=== PATIENT | male | born 1975 | race Asian ===

== ENCOUNTER 2020-04-02 03:28 | Outpatient (REF) | payer OTHER, SELFPAY ==
[2020-04-02 05:34] LABS: SARS COV2 PCR INHOUSE NEGATIVE (Negative)
== END 2020-04-02 03:29 | disposition home or self-care (01) ==
LOC: HO.LAB 03:28
PROVIDERS: Visit Provider Internal Medicine
DX: Z20.828 Contact with and (suspected) exposure to other viral communicable diseases (principal)
CPT/HCPCS: 87635

== ENCOUNTER 2020-04-06 07:04 | Outpatient (REF) | payer OTHER, SELFPAY ==
[2020-04-06 07:23] LABS: COVID-19 Test Negative (Negative)
== END 2020-04-06 07:05 | disposition home or self-care (01) ==
LOC: HO.LAB 07:04
PROVIDERS: Visit Provider Internal Medicine
DX: Z20.828 Contact with and (suspected) exposure to other viral communicable diseases (principal)
CPT/HCPCS: 87635

== ENCOUNTER 2021-01-15 01:05 | Emergency (ER) | payer OTHER, SELFPAY ==
[2021-01-15 01:10] VITALS: BP 154/91; PULSE 83; RESP 16; TEMP 37.1; O2SAT 97; BMI 33.7
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
[2021-01-15] MEDS: Ibuprofen 800 MG TABLET PO (01:33)
--- NOTE | 2021-01-15 01:35 | PC.NURSE ---
PT LAC TO LEFT EAR CLEANED AND DERMABONDED BY DR. SPRINGER.
== END 2021-01-15 01:41 | disposition home or self-care (01) ==
PROVIDERS: Emergency Provider Emergency Medicine
DX: S01.312A Laceration without foreign body of left ear, initial encounter (principal); S60.221A Contusion of right hand, initial encounter; S50.11XA Contusion of right forearm, initial encounter; Y04.2XXA Assault by strike against or bumped into by another person, initial encounter; Y93.9 Activity, unspecified; Y92.230 Patient room in hospital as the place of occurrence of the external cause; Y99.0 Civilian activity done for income or pay
CPT/HCPCS: 99283; 99284

== ENCOUNTER 2021-06-29 00:04 | Outpatient (REF) | payer OTHER, SELFPAY ==
[2021-06-29 01:04] LABS: Influenza A PCR NEGATIVE (Negative); Influenza B PCR NEGATIVE (Negative); Resp Syncy Virus RNA Qual PCR NEGATIVE (Negative); SARS COV2 PCR INHOUSE NEGATIVE (Negative)
== END 2021-06-29 00:05 | disposition home or self-care (01) ==
LOC: HO.LAB 00:04
PROVIDERS: Visit Provider Internal Medicine
DX: Z20.822 Contact with and (suspected) exposure to COVID-19 (principal)
CPT/HCPCS: 0241U

== ENCOUNTER 2022-12-23 07:10 | Emergency (ER) | payer OTHER, SELFPAY ==
--- NOTE | ~2022-12-23 | CT_ITS ---
EXAMINATION: CT ABDOMEN AND PELVIS WITHOUT CONTRAST CLINICAL INFORMATION: Right lower abdominal/right flank pain. COMPARISON: None available. TECHNIQUE: Multidetector volumetric imaging was performed from the superior aspect of the liver through the pubic symphysis. Sagittal and coronal reformatted images were obtained on the technologist's workstation. This CT examination was performed using dose optimization techniques as appropriate, variously including the following: *Automated exposure control *Adjustment of mA and/or kV according to patient size (this includes techniques or standardized protocols for targeted exams where dose is matched to indication/reason for exam; i.e. extremities or head) *Use of iterative reconstruction technique DLP: 705 mGy-cm FINDINGS: LUNG BASES: Small pericardial effusion. LIVER, GALLBLADDER, AND BILIARY TREE: The liver is decreased in attenuation. 2.3 cm right hepatic cyst. 1.6 cm inferior hepatic steatosis. No biliary ductal dilatation is present. The gallbladder is surgically absent. PANCREAS: Unremarkable. SPLEEN: Unremarkable. ADRENAL GLANDS: Unremarkable. KIDNEYS AND URETERS: The kidneys are symmetric in size. No renal calculus. No hydronephrosis. No perinephric stranding. BLADDER: Decompressed. GASTROINTESTINAL TRACT: Small and large bowel loops are of normal caliber. No small bowel obstruction. Appendix is dilated without surrounding inflammatory changes. ABDOMINAL WALL: No significant hernia is appreciated. LYMPH NODES: No bulky abdominal or pelvic lymphadenopathy. VASCULAR: Normal caliber abdominal aorta. PELVIC VISCERA: The prostate gland and seminal vesicles are unremarkable. OSSEOUS STRUCTURES: No destructive bone lesions. CT/CT abdomen pelvis wo IV con IMPRESSION: Dilated appendix measuring up to 1.2 cm without surrounding inflammatory changes. Advise clinical correlation. Hepatic steatosis.
[2022-12-23 07:17] VITALS: BP 138/80; PULSE 79; RESP 16; TEMP 37.2; O2SAT 96; BMI 34.5
--- NOTE | 2022-12-23 07:27 | ED_ITS ---
HPI - Abdominal Pain General Chief Complaint: Abdominal Pain Stated Complaint: r lower abd pain Time Seen by Provider: 12/23/22 07:17 Source: patient Mode of arrival: ambulatory Limitations: no limitations History of Present Illness HPI narrative: 47 yo male presenting to the ER for evaluation of intermittent right lower abdominal pains for the last 2 days. Pain is located in the right lower portion of the abdomen and right flank. No associated nausea, vomiting, diarrhea or urinary symptoms. MD elicited complaint: abdominal pain and flank pain Pertinent past history: none Onset (ago): day(s) (2) Pain Consistency: intermittent Location: RLQ and R flank Severity: moderate Quality: aching Radiation: none Migration to: no migration Exacerbating factors: other (palpation) Relieving factors: nothing Associated symptoms: denies other symptoms Related Data Previous Rx's Medication Instructions Recorded lisinopril 40 mg tablet 40 mg PO DAILY #90 tabs 07/05/22 Allergies Allergy/AdvReac Type Severity Reaction Status Date / Time No Known Allergies Allergy Verified 01/15/21 01:16 Review of Systems Review of Systems Yes all other systems are reviewed and are negative [facility] Past Medical History Medical History HTN (hypertension) Social History Social History Advance Directives: No Advance Directives Information Provided: No Physical Exam ED Vital Signs: Vital Signs - 24 hr 12/23/22 07:17 Temperature 98.9 F Pulse Rate 79 Respiratory Rate 16 Blood Pressure 138/80 Pulse Oximetry 96 Oxygen Delivery Method Room Air BMI result Body Mass Index 34.5 Appearance: Alert. Oriented X3. No acute distress. Head: normocephalic, atraumatic. Eyes: Pupils equal, round and reactive to light. ENT: Pharynx normal. No tonsillar swelling or exudate. Neck: Normal inspection. Neck supple. CVS: Normal heart rate and rhythm. Pulses normal. Respiratory: No respiratory distress. Breath sounds normal. Abdomen: Soft, mild tenderness of the right flank, minimal tenderness to RLQ without rebound or guarding. +BS x4 Skin: Skin warm and dry. Normal skin color. Normal skin turgor. No rashes. Extremities: No lower extremity edema. No joint swelling. Neuro/psych: Oriented X 3. No motor deficit. No sensory deficit. CN II-XII intact. Normal speech and cognition. Medical Decision Making Medical Decision Making MDM Narrative: 47 yo male presenting with right lower abdominal pain for the last 2 days. no leukocytosis, N/V/D doubt acute appendicitis CT scan showed appendix diitation but no surrounding inflammatory changes. Differential Diagnosis Differential Diagnoses: The differential diagnosis associated with the presentation includes acute appendicitis, appendiceal carcinoma, kidney stone, obstructive uropathy, colitis, muscular pain Admission/Observation Consideration of admission/observation: Escalation of care including admission/observation considered RLQ pain, considered admission Lab Data [facility] Lab Attestation statement: I reviewed the patient's lab results. no leukocytosis 12/23/22 07:42 12/23/22 07:42 Labs: Lab Results 12/23/22 12/23/22 12/23/22 Range/Units 07:42 07:42 08:04 WBC 6.6 (4.8-10.8) X10*3/uL RBC 4.50 L (4.60-5.80) X10*6/uL Hgb 14.2 (14.0-18.0) g/dl Hct 41.3 L (42.0-52.0) % MCV 91.8 (80.0-98.0) fL MCH 31.6 (27.0-33.0) pg MCHC 34.4 (31.0-36.0) g/dl RDW 12.7 (11.0-16.0) % Plt Count 233 (160-400) X10*3/uL MPV 9.4 (9.4-12.4) fL Immature Gran % (Auto) 0.3 (0.0-0.4) % Neut % (Auto) 59.2 (45-73) % Lymph % (Auto) 27.6 (20-40) % [place] % (Auto) 7.6 (2-11) % Eos % (Auto) 4.4 H (0-4) % Baso % (Auto) 0.9 (0-2) % Lymph # (Auto) 1.8 (1.2-4.9) X10*3/uL [place] # (Auto) 0.5 (0.1-1.2) X10*3/uL Eos # (Auto) 0.3 (0.0-0.4) X10*3/uL Baso # (Auto) 0.1 (0.0-0.2) X10*3/uL Abs Immat Gran (auto) 0.02 (0.00-0.03) X10*3/uL Absolute Neuts (auto) 3.9 (2.0-8.3) x10*3/uL Absolute Nucleated RBC 0.000 (0.0-0.012) X10*3/uL Nucleated RBC % (auto) 0.0 (0.0-0.2) /100WBC Sodium 140 (135-145) mmol/L Potassium 3.9 (3.3-5.1) mmol/L Chloride 106 (96-108) mmol/L Carbon Dioxide 26 (22-29) mmol/L Anion Gap 12 (12-20) BUN 11 (9-16) mg/dL Creatinine 0.91 (0.5-1.4) mg/dL Estim Creat Clear Calc 107.0 Estimated GFR > 60 Random Glucose 142 H (60-115) mg/dL Calcium 9.4 (8.4-10.2) mg/dL Magnesium 2.0 (1.6-2.6) mg/dL Total Bilirubin 0.9 (0.0-1.0) mg/dL Direct Bilirubin 0.2 (0.0-0.5) mg/dL AST 20 (5-37) U/L ALT 47 H (0-40) U/L Alkaline Phosphatase 89 (39-117) U/L Total Protein 6.8 (6.5-8.0) g/dL Albumin 3.9 (3.5-5.0) g/dL Urine Color Yellow Urine Appearance Clear Urine pH 6.0 (5.0-9.0) Ur Specific [place] 1.025 (1.005-1.025) Urine Protein Negative (Neg-Trace) mg/dL Urine Glucose (UA) Negative (Negative) mg/dL Urine Ketones Negative (Negative) mg/dL Urine Blood Negative (Negative) Urine Nitrite Negative (Negative) Ur Leukocyte Esterase Negative (Negative) Independent Interpretation I performed an independent interpretation of an: CT Scan Interpretation: no mesenteric stranding or inflammatory changes in the RLQ, agree w/ radiology read Radiology Impression Discussion of test interpretation with radiology: I have reviewed the radiologist's reading. Radiologist Impression: ?CT/CT abdomen pelvis wo IV con IMPRESSION: Dilated appendix measuring up to 1.2 cm without surrounding inflammatory changes. Advise clinical correlation. ? Hepatic steatosis. ? External Record Review External record reviewed: Outpatient record and Prior outpatient labs Prescription Management I considered prescription management with: Pain Medication and Antibiotic Critical Care Time Critical Care Time Critical Care Time: No Discharge Plan Discharge Clinical Impression: Abdominal pain Patient Disposition: Home, Self-Care Instructions: Abdominal Pain (ED) Additional Instructions: your lab workup today was unremarkable if you have any abnormal CT scan findings, we will call you Prescriptions: No Action lisinopril 40 mg tablet 40 mg PO DAILY Qty: 90 3RF Referrals: Matthew Encarnacion MD [Physician] - (Enlarged appendix w/o surrounding inflammatory changes but has elevated eosinophils and RLQ pain, no fevers or vomiting) Interventions: ED Discharge Assessment Last Done: 12/23/22 08:16 Discharge Date/Time: 12/23/22 08:16
[2022-12-23 07:45] LABS: MANUAL DIFF FLAG NO
[2022-12-23 07:50] LABS: Basophils Absolute Auto 0.1 X10*3/uL (0.0-0.2); Basophils Percent Auto 0.9 % (0-2); Eosinophils Absolute Auto 0.3 X10*3/uL (0.0-0.4); Eosinophils Percent Auto 4.4 % (0-4); Hematocrit 41.3 % (42.0-52.0); Hemoglobin 14.2 g/dl (14.0-18.0); Imm Gran Abs Auto 0.02 X10*3/uL (0.00-0.03); Imm Gran Pct Auto 0.3 % (0.0-0.4); Lymphocytes Absolute Auto 1.8 X10*3/uL (1.2-4.9); Lymphocytes Percent Auto 27.6 % (20-40); Mean Corpuscular HGB Conc 34.4 g/dl (31.0-36.0); Mean Corpuscular Hemoglobin 31.6 pg (27.0-33.0); Mean Corpuscular Volume 91.8 fL (80.0-98.0); Mean Platelet Volume 9.4 fL (9.4-12.4); Monocytes Absolute Auto 0.5 X10*3/uL (0.1-1.2); Monocytes Percent Auto 7.6 % (2-11); Neutrophils Absolute Auto 3.9 x10*3/uL (2.0-8.3); Neutrophils Percent Auto 59.2 % (45-73); Platelet Count 233 X10*3/uL (160-400); Red Cell Distribution Width 12.7 % (11.0-16.0); White Blood Count 6.6 X10*3/uL (4.8-10.8)
[2022-12-23 08:05] LABS: Alanine Aminotransferase 47 U/L (0-40); Albumin Level 3.9 g/dL (3.5-5.0); Alkaline Phosphatase 89 U/L (39-117); Anion Gap 12 (12-20); Aspartate Amino Transferase 20 U/L (5-37); Bilirubin Direct 0.2 mg/dL (0.0-0.5); Bilirubin Total 0.9 mg/dL (0.0-1.0); Blood Urea Nitrogen 11 mg/dL (9-16); Calcium 9.4 mg/dL (8.4-10.2); Carbon Dioxide 26 mmol/L (22-29); Chloride 106 mmol/L (96-108); Estimated Glomerular Filt Rate > 60; Glucose Random 142 mg/dL (60-115); Potassium 3.9 mmol/L (3.3-5.1); Sodium 140 mmol/L (135-145); Total Protein 6.8 g/dL (6.5-8.0)
[2022-12-23 08:14] LABS: Appearance Urine Clear; Color Urine Yellow; Glucose Urine UA Negative (Negative); Leukocyte Esterase Urine Negative (Negative); Nitrite Urine Negative (Negative); Specific Gravity - Urine 1.025 (1.005-1.025); Urine Blood Negative (Negative); Urine Ketones Negative (Negative); Urine Protein Negative (Neg-Trace)
== END 2022-12-23 08:16 | disposition home or self-care (01) ==
PROVIDERS: Physician Assistant; Emergency Provider Emergency Medicine
DX: R10.31 Right lower quadrant pain (principal); R00.2 Palpitations; Z79.899 Other long term (current) drug therapy
CPT/HCPCS: 36415; 74176; 80048; 80076; 81003; 83735; 85025; 99282; 99284

== ENCOUNTER 2023-02-22 13:40 | Outpatient (AMB) | payer OTHER, SELFPAY ==
--- NOTE | 2023-02-22 13:49 | MHC.OFFVIS ---
Intake Vital Signs 02/22/23 13:50 Height 5 ft 6 in Weight 212 lb 15.465 oz BMI 34.4 BP 150/93 H Blood Pressure Location Rt brachial Position Sitting Pulse 69 Intake Visit Reasons: GERD and Difficulty Swallowing Intake Note: New consult for GERD and Dysphagia. Patient cc: abdominal discomfort, burning sensation with liquid and dysphagia with solid food. Patient have hx of H pylori infections in the past. Pediatric Psychiatrist Required: No Accompanied by: Self / Same As Patient Allergies No Known Allergies Allergy (Verified 02/22/23 13:48) HPI HPI Comments History of Present Illness Details A 47 y/o male with dysphagia to solids--odynophagia with liquid- he has had EGD x 3 - last 6 years ago -he reports he had been treated for H pylori several times while in [place] as well as here in the [place] He says he was in the ED for RLQ pain- seemed to have now subsided -he had a CT, a showed dilated appendix His not had any fever chills-no further abdominal pain. he has never had a colonoscopy No bowel issues Typically a good appetite No nausea, vomiting, hematemesis, hematochezia fever chills PFSH Medical History HTN (hypertension) Family History Mother Uterus cancer Social History (Updated 02/22/23 @ 14:03 by Drea Leal PA-C) Household Members: Family Household Members Other:: 4 kids Alcohol intake: never Patient Tobacco Use Status: Never used Tobacco Current occupational status: employed Current occupation: RN- ED psych Review of Systems Const All systems reviewed & are unremarkable except as noted in HPI and below Card Denies chest pain and Denies dyspnea Resp Denies dyspnea GI Denies abdominal pain, Denies hematochezia, Denies change in bowel habits, Reports dyspepsia, Reports heartburn, Denies nausea and Denies vomiting Physical Exam Vital Signs: Last Vital Signs Pulse 69 02/22/23 13:50 BP 150/93 H 02/22/23 13:50 BMI result Body Mass Index 34.4 Const General: cooperative, healthy appearing, comfortable and no acute distress Orientation/consciousness: patient oriented x3 Limitations: no limitations Eyes Sclerae: sclerae normal Resp Effort & Inspection: normal respiratory effort and able to speak in complete sentences Auscultation: clear to auscultation bilaterally, no rales, no rhonchi and no wheezes Cardio Rate: regular rate Rhythm: regular rhythm Heart sounds: S1 normal heart sound present and S2 normal heart sound present GI Palpation (GI): Soft to palpation, nontender and no guarding Auscultation: normal bowel sounds Skin General skin exam: no rashes or lesions noted Neuro General: patient oriented x3 Extrem General: Yes full ROM Psych Appearance: grossly normal and well kempt Speech and movement: Normal speech and movement present and Clear speech present Affect: normal affect Attitude: cooperative Thought process: Normal thought process present Thought content: Normal thought content present Insight: Good insight present (Psych) Judgement: Good judgement present (Psych) Results Reviewed Results Reviewed: 02/24/23 15:48 H Pylori Breath Test Routine Laboratory Last Values H. pylori Breath Test Negative (Negative) 02/22/23 14:28 12/23/22- CT/CT abdomen pelvis wo IV con IMPRESSION: Dilated appendix measuring up to 1.2 cm without surrounding inflammatory changes. Advise clinical correlation. Hepatic steatosis. Assessment & Plan Assessment & Plan (1) Dysphagia: Code(s): R13.10 - Dysphagia, unspecified (2) Appendix disease: Comment: GASTROINTESTINAL TRACT: Small and large bowel loops are of normal caliber. No small bowel obstruction. Appendix is dilated without surrounding inflammatory changes. Code(s): K38.9 - Disease of appendix, unspecified Plan H pylori UBT-if positive will treat EGD, index screening colonoscopy- However need for surgical consult regard to dilated appendix though he is currently asymptomatic needs further eval Will discuss further with MD Orders: Orders H Pylori Breath Test 02/24/23 A04.8 - Other specified bacterial intestinal infections Medications: New omeprazole 20 mg PO DAILY 30 caps 5RF Patient Instructions: Very pleasant 47-year-old male referred with dysphagia-right lower quadrant pain, evaluated by ED We have placed referral to surgery for further evaluation -he will be due for colonoscopy possibly EGD as well however plan of care dependent on above He agrees with the plan, he will call for H pylori results= as well call with any concerns Appreciate the opportunity assist in the care this pleasant Gent Coding Level of Care Code New Pt Level 3 (71385) Diagnoses Dysphagia R13.10 Appendix disease K38.9 Time Spent (min) 30
[2023-02-22 13:50] VITALS: BP 150/93; PULSE 69; BMI 34.4
[2023-02-26 10:32] LABS: H Pylori Breath Test Negative (Negative)
== END 2023-02-22 14:37 | disposition home or self-care (01) ==
PROVIDERS: PCP Physician Assistant; Visit Provider Physician Assistant
DX: R13.10 Dysphagia, unspecified (principal); K38.9 Disease of appendix, unspecified
CPT/HCPCS: 99203

== ENCOUNTER → 2023-02-22 13:40 | Outpatient (BNVA) | payer OTHER, SELFPAY | PROVIDERS: PCP Physician Assistant; Visit Provider Physician Assistant | DX: R13.10 Dysphagia, unspecified (principal); K38.9 Disease of appendix, unspecified; Z11.0 Encounter for screening for intestinal infectious diseases | CPT/HCPCS: 83013 ==

== ENCOUNTER 2023-03-08 08:45 | Outpatient (REF) | payer OTHER, SELFPAY ==
[2023-03-08 10:53] LABS: Blood Urea Nitrogen 12 mg/dL (9-16); Estimated Glomerular Filt Rate > 60
== END 2023-03-08 08:46 | disposition home or self-care (01) ==
LOC: HO.LAB 08:45
PROVIDERS: PCP Physician Assistant; Referring Provider Physician Assistant; Visit Provider Surgery
DX: R93.5 Abnormal findings on diagnostic imaging of other abdominal regions, including retroperitoneum (principal)
CPT/HCPCS: 36415; 82565; 84520

== ENCOUNTER 2023-03-08 08:45 | Outpatient (AMB) | payer OTHER, SELFPAY ==
--- NOTE | 2023-03-08 08:47 | MHC.OFFVIS ---
Intake Vital Signs 03/08/23 08:52 Height 5 ft 6 in Weight 212 lb BMI 34.2 BP 133/85 Blood Pressure Location Rt brachial Position Sitting Pulse 72 Intake Visit Reasons: Disease of appendix, unspecified Intake Note: This patient was referred by Drea Leal PA-C for an assessment for right lower quadrant pain. Patient c/o; denies right lower quadrant pain at this time, patient reports RLQ pain was only one episode, denies problems with bowel movements, reports dysphagia to solids--odynophagia with liquid. [employer] Dispatcher Required: No Accompanied by: Self / Same As Patient Allergies No Known Allergies Allergy (Verified 03/08/23 08:58) Medication List - Last Reconciled 03/08/23 by Matthew Encarnacion MD amlodipine 5 mg PO DAILY lisinopril 40 mg PO DAILY omeprazole 20 mg PO DAILY HPI Disease of appendix, unspecified HPI Details 47-year-old male referred for an abnormal CT scan in December. He went to the ER December, because of right lower quadrant pain. He describes this as mild at that time. He had a CAT scan showing a dilated appendix without any inflammatory changes. He says that he had pain pain is resolved in 2-3 days He denies any abdominal complaints at this time. He has had no abdominal pain he has had good oral intake. He denies any problems with bowel movements. He denies any weight loss. [facility] Medical History (Updated 03/08/23 @ 09:21 by Matthew Encarnacion MD) Abnormal CT of the abdomen HTN (hypertension) Surgical History History of cholecystectomy (~2007) Family History Mother Uterus cancer Social History Household Members: Family Household Members Other:: 4 kids Alcohol intake: never Patient Tobacco Use Status: Never used Tobacco Current occupational status: employed Current occupation: RN- ED psych Review of Systems Const Denies chills and Denies fever(s) ENT Reports dysphagia Card Denies chest pain, Denies dyspnea and Denies dyspnea on exertion Resp Denies cough, Denies dyspnea and Denies dyspnea on exertion GI Denies hematochezia, Denies change in bowel habits and Reports dysphagia Denies hematuria and Denies difficulty urinating Musc Denies back pain and Denies limited range of motion Neuro Denies focal weakness and Denies convulsions Psych Denies depression and Denies mood swings Physical Exam Vital Signs: Last Vital Signs Pulse 72 03/08/23 08:52 BP 133/85 03/08/23 08:52 BMI result Body Mass Index 34.2 Const General: comfortable and no acute distress Orientation/consciousness: patient oriented x3 Neck Neck: Yes no lymphadenopathy Resp Auscultation: clear to auscultation bilaterally Cardio Rhythm: regular rhythm GI Palpation (GI): Soft to palpation, nontender and no guarding Neuro General: patient oriented x3 Assessment & Plan Assessment & Plan (1) Abnormal CT of the abdomen: Code(s): R93.5 - Abnormal findings on diagnostic imaging of other abdominal regions, including retroperitoneum Plan: He had a CAT scan done a visit to the ER last December, showing dated appendix up to 1.2 cm. He currently denies any complaints. He denies any abdominal pain or any problems with bowel movements. I explained to him that this may be a normal variant. I plan to repeat the CT scan to see if there are any changes regards to his appendix. He also had mentioned that he had some sensation of his food getting stuck in his chest whenever he eats. He seen the professor of legal studies. We will follow up with them as he is supposed to be scheduled for endoscopy as well as colonoscopy. I will see him again after his CAT scan. Coding Level of Care Code New Pt Level 3 (48617) Diagnoses Abnormal CT of the abdomen R93.5
[2023-03-08 08:52] VITALS: BP 133/85; PULSE 72; BMI 34.2
== END 2023-03-08 09:24 | disposition home or self-care (01) ==
PROVIDERS: PCP Physician Assistant; Referring Provider Physician Assistant; Visit Provider Surgery
DX: R93.5 Abnormal findings on diagnostic imaging of other abdominal regions, including retroperitoneum (principal)
CPT/HCPCS: 99203

== ENCOUNTER 2023-04-19 07:24 | Outpatient (REF) | payer OTHER, SELFPAY ==
--- NOTE | ~2023-04-19 | CT_ITS ---
EXAMINATION: CT ABDOMEN AND PELVIS WITH CONTRAST CLINICAL INFORMATION: Abnormal appendix December 2022 COMPARISON: CT abdomen pelvis 12/23/2022 TECHNIQUE: Multidetector volumetric images were obtained from the superior aspect of the liver through the pubic symphysis following administration 85 mL of Omnipaque 350 intravenous contrast. Sagittal and coronal reformatted images were obtained on the technologist's workstation. This CT examination was performed using dose optimization techniques as appropriate, variously including the following: *Automated exposure control *Adjustment of mA and/or kV according to patient size (this includes techniques or standardized protocols for targeted exams where dose is matched to indication/reason for exam; i.e. extremities or head) *Use of iterative reconstruction technique DLP: 548 mGy-cm FINDINGS: Visualized lung bases are well aerated. The liver is normal in size. Two Hepatic cysts are relatively stable in size. The gallbladder surgically absent. The pancreas, spleen and adrenal glands are unremarkable. Symmetrically enhancing kidneys. There is no hydronephrosis of either kidney. Subcentimeter hypodense focus within the midpole the left kidney is too small to accurately characterize but statistically a cyst. Debris-filled stomach. Normal caliber loops of small and large bowel. Mild colonic stool burden. The appendix is normal in appearance measuring 6 mm in maximum dimension. There are no adjacent inflammatory changes. Irregularly shaped lipoma within the ascending colon measuring approximately 5.5 cm in maximum dimension. Normal caliber abdominal aorta. No retroperitoneal lymphadenopathy. Tiny fat-containing umbilical hernia is stable. The bladder is normal in appearance. The prostate gland is normal in size. No gross free pelvic fluid. Mild diffuse degenerative changes of the spine. CT/CT abdomen pelvis w IV con IMPRESSION: 1. The appendix is normal in appearance. 2. Irregularly shaped lipoma within the ascending colon measuring approximately 5.5 cm in maximum dimension. Fleischner guidelines were followed.
[2023-04-19] MEDS: iohexoL 350 MG/ML 100 ML INFUS..BTL IV (08:46)
== END 2023-04-19 07:25 | disposition home or self-care (01) ==
LOC: HO.CT 07:24
PROVIDERS: PCP Physician Assistant; Visit Provider Surgery
DX: R93.5 Abnormal findings on diagnostic imaging of other abdominal regions, including retroperitoneum (principal)
CPT/HCPCS: 74177; Q9967

== ENCOUNTER 2023-04-27 12:49 | Day surgery (SDC) | payer OTHER, SELFPAY ==
[2023-04-25 12:46] VITALS: BMI 34.2
--- NOTE | 2023-04-26 10:11 | P.CONAN_ITS ---
Documented by User: Olive Gallo NP 04/26/23 10:12 HPI - Anesthesia Eval Consult details Narrative: 47yo M for Upper Endoscopy and Colonoscopy [facility] Active Problems Active Problems: All Active Problems (Updated 03/08/23 @ 09:21 by Matthew Encarnacion MD) Abnormal CT of the abdomen (Acute) Appendix disease (Acute) Dysphagia (Acute) Past Medical History Medical History Abnormal CT of the abdomen HTN (hypertension) Family History Family History Mother Uterus cancer Surgical History Surgical History History of cholecystectomy (~2007) Social History Social History Household Members: Family Household Members Other:: 4 kids Alcohol intake: never Patient Tobacco Use Status: Never used Tobacco Use of substances other than those prescribed or required for medical reasons: No Are you DNR?: No Advance Directives: No Advance Directives Information Provided: Yes Current occupational status: employed 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 Allergies Allergy/AdvReac Type Severity Reaction Status Date / Time No Known Allergies Allergy Verified 03/08/23 08:58 Exam Exam Date and Time: April 26, 2023 1011 Height,Weight and Vital Signs: Height 5 ft 6 in Weight 96.162 kg Pertinent Lab Results Pertinent Lab Results: Laboratory Tests 12/23/22 03/08/23 07:42 09:57 WBC 6.6 Hgb 14.2 Hct 41.3 L Plt Count 233 Sodium 140 Potassium 3.9 Chloride 106 Carbon Dioxide 26 BUN 12 Creatinine 1.00 Assessment and Plan Assessment Anesthesia Assessment: Chart Reviewed Documented by User: Angela Richmond MD 04/27/23 13:31 PMF Past Medical History Medical History Abnormal CT of the abdomen HTN (hypertension) Family History Family History Mother Uterus cancer Family history of problems with anesthesia: No Surgical History Surgical History History of cholecystectomy (~2007) History of Problems with Anesthesia: No Social History Social History Household Members: Family Household Members Other:: 4 kids Alcohol intake: never Patient Tobacco Use Status: Never used Tobacco Use of substances other than those prescribed or required for medical reasons: No Are you DNR?: No Advance Directives: No Advance Directives Information Provided: Yes Current occupational status: employed 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 Allergies Allergy/AdvReac Type Severity Reaction Status Date / Time No Known Allergies Allergy Verified 03/08/23 08:58 Exam Airway Mallampati Class: III TM Dist: >3cm Neck ROM: Limited Heart: rrr Lungs: cta Assessment and Plan Assessment Anesthesia Assessment: Anesthesia Plan Discussed Final Anesthetic Review Family History of Problems with Anesthesia: No History of Problems with Anesthesia: No NPO: Yes ASA Class: II and III Final Preanesthetic Review: No Changes in Pt Med Stat, Meds/Allgs Chart Reviewed, Consent Obtained/Reviewed and Anes Risks/Benef Reviewed Patient Risk: Intermediate Procedure Risk: Low Anesthetic Plan Anesthetic Plan: MAC: Disposition: Standard PACU
[2023-04-27 13:17] VITALS: BMI 34.1
[2023-04-27 13:23] VITALS: BP 144/80; PULSE 74; RESP 16; TEMP 36.7; O2SAT 95
--- NOTE | 2023-04-27 13:29 | MHC.SHP ---
Pre-Procedural Eval Section A Date of Service: 04/27/23 Section B Chief Complaint: Dysphagia,screening Relevant Family History (Specify if Yes): No Relevant Social History: None Present Medications: see Short Stay Collaborative assessment Medical History: Significant History (Abnormal CT of the abdomen HTN (hypertension)) History of Previous Operations: Relevant previous surgery/procedure and date(s) (History of cholecystectomy (~2007)) Allergies: Allergies Allergy/AdvReac Type Severity Reaction Status Date / Time No Known Allergies Allergy Verified 03/08/23 08:58 Review of Systems Sugical H&P ROS: Negative: Constitution, Cardiovascular, Respiratory, Neurological, Psychiatric, Hem-Onc, Allergic/Immunologic, Gastrointestinal, Genitourinary, Musculoskeletal, Integumentary, Endocrine and Eyes/Ears/Nose/Throat Exam Surgical H&P Exam: Normal: HEENT, Normal: Heart, Normal: Lungs, Normal: Extremities, Normal: Abdomen, Normal: Skin and Normal: Neurological Plan Diagnosis/Plan: Unchanged I have reviewed the history and physical and performed a pertinent physical examination on my patient. No changes have occurred unless specified. Time Spent With Patient Time: Total time managing care of this patient today ____ minutes.
--- NOTE | 2023-04-27 14:00 | P.OP_ITS ---
Operative Note Operative Note Date of Service: 04/27/23 Narrative: Operative Information Procedure Description: EGD, Colonoscopy Indication: dysphagia, screening Anesthesia: MAC FLEXIBLE TRANSORAL UPPER GASTROINTESTINAL ENDOSCOPY AND COLONOSCOPY PROCEDURE NOTE UPPER ENDOSCOPY Consent: Indications for the procedure and potential complications of bleeding, perforation, reaction to medications and missed diagnosis were discussed with the patient and informed consent was obtained. Instrument: Olympus GIF H 190 J mid size upper endoscope Monitoring: Vital signs and clinical assessment, continuous EKG monitoring, Pulse oximetry, Carbon Dioxide monitoring and blood pressure monitoring were done throughout the procedure. Procedure: The patient was placed in the left lateral decubitis position and pre-procedure medications were administered and a bite block was placed. The endoscope was inserted into the mouth and advanced under direct vision to the third part of duodenum. A careful inspection was made as the upper endoscope was withdrawn including a retroflexed examination of the proximal stomach; Findings and interventions are described below. Findings: Larynx:normal Esophagus: GE junction at 40 cm, diaphragm hiatus at 40 cm, irregular Z line, bx taken from gEJ, also in distal esophagus there was a nodular area, bx taken, and x 1 clip applied for hemostasis. bx taken from mid and proximal esophagus. Balloon dilation to 20 mm at LES and 19 mm at UES. Appeared to be tertiary contractions, Stomach: atrophic appearing mucosa. Biopsies were obtained. Grade 2 flap valve on retroflexed examination of the cardia. Duodenum: Normal bulb and descending duodenum, Intervention: Biopsies as noted above, balloon dilation COLONOSCOPY Instrument: Olympus variable stiffness ADULT scope 190L Colonoscopy Monitoring: Vital signs and clinical assessment, continuous EKG monitoring, Pulse oximetry, Carbon Dioxide monitoring and blood pressure monitoring were done throughout the procedure. Colon withdrawal time was 8 minutes. Procedure: The patient was placed in the left lateral decubitis position and pre-procedure medications were administered. After a digital rectal examination of the ano-rectum, the video colonoscope was inserted into the rectum and advanced through the colon to the cecum/TI. The colonoscope was slowly withdrawn in a retrograde panoramic fashion and the colon mucosa was carefully examined including a retroflexed view of the rectum. Findings and interventions are described below. Procedure Difficulty:moderate, pressure applied Findings: Terminal Ileum-not intubated Cecum:normal Ascending Colon: normal Transverse Colon -normal Descending Colon:normal Sigmoid Colon: normal Rectum: Retroflexion with small internal hemorrhoids, grade I Anorectum - normal Colon preparation: Archer Bowel Preparation Scale Right colon; 1-2 Transverse colon: 2 Left colon; 1-2 (0 = Unprepared colon segment with mucosa not seen due to solid stool that cannot be cleared. 1 = Portion of mucosa of the colon segment seen, but other areas of the colon segment not well seen due to staining, residual stool and/or opaque liquid. 2 = Minor amount of residual staining, small fragments of stool and/or opaque liquid, but mucosa of colon segment seen well. 3 = Entire mucosa of colon segment seen well with no residual staining, small fragments of stool or opaque liquid) Impression and Post Procedure Diagnosis: Endoscopy Findings: atrophic gastritis esophageal dysmotility and nodule Colonoscopy Findings: internal hemorrhoids Plan: Await Pathology results Repeat Colonoscopy in 5 years due to fair prep in some areas or earlier if clinically indicated High fiber diet leaflet avoid straining at stool, epsom salts and sitz bath, anusol supps or cream if h pylori pos then treat iif ongoing sx then esophageal manometry Above findings were reviewed with the patient and relevant handouts were provided if indicated.
[2023-04-27 15:05] VITALS: BP 105/68; PULSE 66; RESP 16; TEMP 36.8; O2SAT 94
[2023-04-27 15:20] VITALS: BP 123/75; PULSE 68; RESP 14; O2SAT 97
[2023-04-27 15:35] VITALS: BP 125/77; PULSE 70; RESP 14; TEMP 36.8; O2SAT 98
== END 2023-04-27 16:03 | disposition home or self-care (01) ==
PROVIDERS: PCP Physician Assistant; Visit Provider Internal Medicine Gastroenterology
PROC: (CPT 43249; principal; 2023-04-27 15:20)
DX: K29.40 Chronic atrophic gastritis without bleeding (principal); K22.9 Disease of esophagus, unspecified; K22.4 Dyskinesia of esophagus; R13.10 Dysphagia, unspecified; K21.9 Gastro-esophageal reflux disease without esophagitis; Z12.11 Encounter for screening for malignant neoplasm of colon; K64.0 First degree hemorrhoids; I10 Essential (primary) hypertension
CPT/HCPCS: 43249; 43239; 45378; 88305; 88342; C1726; J2704

== ENCOUNTER → 2023-04-27 12:49 | Outpatient (BNV) | payer OTHER, SELFPAY | PROVIDERS: PCP Physician Assistant; Visit Provider Internal Medicine Gastroenterology | DX: Z12.11 Encounter for screening for malignant neoplasm of colon (principal); K29.70 Gastritis, unspecified, without bleeding; K20.90 Esophagitis, unspecified without bleeding; K64.0 First degree hemorrhoids | CPT/HCPCS: 43249; 45378 ==

== ENCOUNTER 2023-05-11 07:14 | Outpatient (AMB) | payer OTHER, SELFPAY ==
--- NOTE | 2023-05-11 07:32 | A.OFFVIS_ITS ---
Intake Vital Signs 05/11/23 07:33 Height 5 ft 6.5 in Weight 211 lb 10.3 oz BMI 33.6 BP 124/71 Blood Pressure Location Lt brachial Position Sitting Pulse 80 Intake Visit Reasons: s/p colon Intake Note: Patient follow up for Colonoscopy/EGD results. Patient denies any GI issues. [employer] Turbine [employer] Required: No Accompanied by: Self / Same As Patient Allergies No Known Allergies Allergy (Verified 05/11/23 08:23) HPI HPI Comments History of Present Illness Details A pleasant 47-year-old male follows up after recent EGD colonoscopy with Dr. Alejandro 04/27/23 He had previously been to the ED had dilated appendix was seen by surgery for evaluation As well had repeat abdominal CT 04/19-revealing IMPRESSION: 1. The appendix is normal in appearance . 2. Irregularly shaped lipoma within the ascending colon measuring approximately 5.5 cm in maximum dimension EGD with successful balloon dilation Review procedure report, pathology recommendation He has no nausea, vomiting, no dysphagia No bowel issues [facility] Medical History (Updated 05/17/23 @ 11:11 by Drea Leal PA-C) Abnormal CT of the abdomen HTN (hypertension) Surgical History History of esophagogastroduodenoscopy (EGD) Hx of colonoscopy History of cholecystectomy (~2007) Family History Mother Uterus cancer Social History Household Members: Family Household Members Other:: 4 kids Housing: House Alcohol intake: never Patient Tobacco Use Status: Former Tobacco user Tobacco use type: Cigarette e-Cigarette/Vaping Use: Never Used Second Hand Smoke Exposure: No Current occupational status: employed Current occupation: RN- ED psych Cognitive needs: No Hearing needs: No Vision needs: Yes Review of Systems Const All systems reviewed & are unremarkable except as noted in HPI and below Card Denies chest pain and Denies dyspnea Resp Denies dyspnea GI Denies abdominal pain Physical Exam Vital Signs: Last Vital Signs Pulse 80 05/11/23 07:33 BP 124/71 05/11/23 07:33 BMI result Body Mass Index 33.6 Results Reviewed Results Reviewed: 04/27/23 Impression and Post Procedure Diagnosis: Endoscopy Findings: atrophic gastritis esophageal dysmotility and nodule Colonoscopy Findings: internal hemorrhoids Plan: Await Pathology results Repeat Colonoscopy in 5 years due to fair prep in some areas or earlier if clin ically indicated High fiber diet leaflet avoid straining at stool, epsom salts and sitz bath, anusol supps or cream if h pylori pos then treat iif ongoing sx then esophageal manometry Above findings were reviewed with the patient and relevant handouts were provided if indicated. Surgical Pathology [id number] Name: Baljeet Saleem Age/Sex: 47/M Attending: Jose C Alejandro MD : 1975 Submitted by: Jose C Alejandro MD Copies to: Panfilo Jeffers PA-C MR #: [id number] Status: [facility] [place] Collected: 04/27/23 Location: [facility] Received: 04/28/23 Diagnosis A. Stomach, biopsy: Gastric antral mucosa with minimal chronic inactive romel ritis; negative for H pylori, intestinal metaplasia and dysplasia. B. Gastroesophageal junction, biopsy: Squamocolumnar mucosa with mild chronic inactive inflammation; negative for intestinal metaplasia and dysplasia. C. Esophagus, nodule, biopsy: Hyperplastic polypoid squamous mucosa with rare intraepithelial neutrophils and focal intraepithelial eosinophils (up to 2 per high-power field), lymphoid aggregates, focal columnar mucosa, and detached fragments of superficial squamous epithelium with bacteria, compatible with inflammatory polyp; negative for intestinal metaplasia and dysplasia. D. Esophagus, mid and proximal, biopsy: Squamous mucosa with focal increased intraepithelial lymphocytes; no columnar mucosa present (see comment). Comment: (D): The findings may represent a non-specific reaction pattern, but lymphocytic esophagitis is not excluded. Clinical History Pre-Op Dx: Dysphagia, colon cancer screening Post-Op Dx: Atrophic gastritis, esophageal nodule, tertiary contractions, hemorrhoids Microscopic Description Microscopic sections reviewed. Immunostain for H. pylori on A is negative with appropriate control. Material Received A. Stomach bx's B. GE junction bx's C. Esophageal nodule bx's D. Mid and proximal esophagus bx's Gross Description Received in 4 parts. Part A: Received in formalin labeled ?stomach bx's? are 2 olivares irregular tissue fragments each measuring 0.3 cm, submitted in toto in a cassette labeled A. Patient: Baljeet Saleem Age/Sex: 47/M [facility] [id number] MR#: [id number] [address]/CT abdomen pelvis w IV con IMPRESSION: 1. The appendix is normal in appearance. 2. Irregularly shaped lipoma within the ascending colon measuring approximately 5.5 cm in maximum dimension Assessment & Plan Assessment & Plan (1) GERD (gastroesophageal reflux disease): Code(s): K21.9 - Gastro-esophageal reflux disease without esophagitis Qualifiers: Esophagitis presence: without esophagitis Qualified Code(s): K21.9 - Gastro-esophageal reflux disease without esophagitis Plan: Omeprazole 20 mg q.d. Reflux precautions (2) Dysphagia: Comment: EGD with dilation no issues Code(s): R13.10 - Dysphagia, unspecified Plan: Omeprazole good response (3) Lipoma: Comment: Seen on CT, colonoscopy followed Code(s): D17.9 - Benign lipomatous neoplasm, unspecified Plan: Will review with Dr. Alejandro Plan Repeat colonoscopy 5 years due to prep Patient Instructions: sent note re CT and call pt - PPI daily Reflux precautions Avoid culprits Coding Level of Care Code Est Pt Level 3 (84809) Diagnoses Gastroesophageal reflux disease without esophagitis K21.9 Esophagitis presence: without esophagitis Dysphagia R13.10 Lipoma D17.9 Time Spent (min) 25
[2023-05-11 07:33] VITALS: BP 124/71; PULSE 80; BMI 33.6
== END 2023-05-11 07:57 | disposition home or self-care (01) ==
PROVIDERS: PCP Physician Assistant; Visit Provider Physician Assistant
DX: K21.9 Gastro-esophageal reflux disease without esophagitis (principal); R13.10 Dysphagia, unspecified; D17.9 Benign lipomatous neoplasm, unspecified
CPT/HCPCS: 99213

== ENCOUNTER → 2023-05-11 07:14 | Outpatient (BNVA) | payer OTHER, SELFPAY | PROVIDERS: PCP Physician Assistant; Visit Provider Physician Assistant ==

== ENCOUNTER 2023-05-11 08:00 | Outpatient (AMB) | payer OTHER, SELFPAY ==
[2023-05-11 08:10] VITALS: BP 118/78; PULSE 85; O2SAT 98; BMI 33.4
--- NOTE | 2023-05-11 08:10 | A.OFFPC_ITS ---
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 Allergies No Known Allergies Allergy (Verified 05/11/23 08:23) Medication List - Last Reconciled 05/11/23 by Panfilo Jeffers PA-C amlodipine 5 mg PO DAILY lisinopril 40 mg PO DAILY omeprazole 20 mg PO DAILY Tobacco use date assessed: 05/11/23 Dental Screening Dental Screen Date: 05/11/23 Did you have a dental visit in the last 12 months?: No Did you have a dental problem in the last 6 months where you did not have access to dental care?: No Was dental information given to patient?: Patient has dentist HPI POTABLE WATER TREATMENT OPERATOR/HTN/meds HPI Details Patient is a 47-year-old male here today for a new patient here today for a new patient visit. 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 ---concern-> ports noting some muscle cr amps in his upper extremities. He attributes this to his excessive caffeine drinking to try to stay up during his night shifts. Likely some dehydration here. .. Hypertension: Patient's blood pressure acceptable today in office. Continues lisinopril amlodipine with good effect on split pressure. Patient did recently undergo an endoscopy and colonoscopy showing an inflammatory polyp. Has been started on Prilosec. Vaccines: Up-to-date with COVID vaccine, pneumonia and tetanus vaccines. [facility] Medical History (Updated 05/11/23 @ 08:47 by Panfilo Jeffers PA-C) Abnormal CT of the abdomen HTN (hypertension) Surgical History History of esophagogastroduodenoscopy (EGD) Hx of colonoscopy History of cholecystectomy (~2007) Family History Mother Uterus cancer Social History Household Members: Family Household Members Other:: 4 kids Housing: House Alcohol intake: never Patient Tobacco Use Status: Former Tobacco user Tobacco use type: Cigarette e-Cigarette/Vaping Use: Never Used Second Hand Smoke Exposure: No Current occupational status: employed Current occupation: RN- ED psych Cognitive needs: No Hearing needs: No Vision needs: Yes Questionnaire PHQ-9 Over the last 2 weeks, how often have you been bothered by any of the following problems? 1. Little interest or pleasure in doing things: not at all 2. Feeling down, depressed, or hopeless: not at all 3. Trouble falling or staying asleep, or sleeping too much: not at all 4. Feeling tired or having little energy: not at all 5. Poor appetite or overeating: not at all 6. Feeling bad about yourself - or that you are a failure or have let yourself or your family down: not at all 7. Trouble concentrating on things, such as reading the newspaper or watching television: not at all 8. Moving or speaking so slowly that other people could have noticed. Or the opposite - being so fidgety or restless that you have been moving around a lot more than usual: not at all 9. Thoughts that you would be better off or of hurting yourself in some way: not at all Total score: 0 Depression Screening Interpretation: Negative Depression Screening Done: Yes 13589 - PHQ-9 Billing: Yes Source: Developed by Drs. Jed Askew, Jeri Silver, Bay Dan and colleagues, with an educational helio from [employer]. Thrive Questionnaire Date Thrive assessed: 05/11/23 I am a: Patient What is your living situation today?: I have a steady place to live Within the past 12 months, did the food you bought not last and you didn't have the money to get more?: Never true Within the past 12 months, did you worry whether your food would run out before you got money to buy more?: Never true Do you have trouble paying for medicines?: No Do you have trouble getting transportation to medical appointments?: No Do you have trouble paying your heating and electricity bill?: No Do you have trouble taking care of your child, family member or friend?: No Do you have trouble with day-to-day activities such as bathing, preparing meals, shopping, managing finances, etc.?: No Are you currently unemployed and looking for a job?: No Are you interested in more education?: No Currently or been in a relationship where the following occur: no concerns reported AUDIT C Alcohol Use Questionnaire (AUDIT-C) 1. How often do you have a drink containing alcohol?: Never 3. How often do you have six or more drinks on one occasion?: Never Total Score: 0 MONICA-7 AMB Questionnaire MONICA-7 Date MONICA - 7 assessed: 05/11/23 Feeling nervous, anxious, or on edge: 0 = Not at all Not being able to stop or control worryin = Not at all Worrying too much about different things: 0 = Not at all Trouble relaxin = Not at all Being so restless that it is hard to sit still: 0 = Not at all Becoming easily annoyed or irritable: 0 = Not at all Feeling afraid as if something awful might happen: 0 = Not at all Total MONICA-7 score (0-4 normal; 5-9 mild; 10-14 moderate; 15-21 severe): 0 Source: Developed by Drs. Jed Askew, Jeri Silver, Bay Dan and colleagues, with an educational helio from [employer]. MONICA-7 Assessment Billing MONICA-7 Assessment Tool: MONICA-7 Assessment 64636 Review of Systems Const Denies headache(s) Eyes Denies loss of vision ENT Denies vertigo, Denies dizziness, Denies headache(s) and Denies sore throat Card Denies chest pain, Denies leg edema and Denies lightheadedness Resp Denies cough, Denies hemoptysis and Denies wheezing GI Denies abdominal pain, Denies melena, Denies constipation, Denies diarrhea and Denies vomiting Denies dysuria, Denies urinary frequency and Denies urinary urgency Musc Denies arthralgias, Denies joint swelling, Denies numbness and Denies tingling Neuro Denies Abnormal speech present, Denies behavioral changes, Denies vertigo, Denies dizziness, Denies headache(s), Denies loss of vision, Denies memory loss, Denies numbness and Denies tingling Psych Denies anxiety, Denies behavioral changes, Denies depression, Denies memory loss and Denies panic attacks Bryant/Lymph Denies easy bleeding and Denies easy bruising Aller/Immun Denies wheezing Physical exam (Primary Care) Vital Signs: Last Vital Signs Pulse 85 05/11/23 08:10 BP 118/78 05/11/23 08:10 Pulse Ox 98 05/11/23 08:10 Oxygen Delivery Method Room Air 05/11/23 08:10 BMI result Body Mass Index 33.4 BMI Assessment/Plan discussion: High Tobacco/Smoking Status: Tobacco use Status Tobacco use date assessed 05/11/23 05/11/23 08:18 Patient Tobacco Use Status Former Tobacco user 05/11/23 08:18 Tobacco use type Cigarette 05/11/23 08:18 e-Cigarette/Vaping Use Never Used 05/11/23 08:18 PHQ-9: PHQ-9 Score PHQ-9: Total score 0 05/11/23 08:47 Depression Screening Interpretation: Negative Thrive Assessment: Date of Thrive Assessment Date Thrive assessed 05/11/23 05/11/23 08:18 Currently or been in a relationship where the following occur: no concerns reported Const Other: Obese General: healthy appearing, no acute distress, alert and awake Nutritional Appearance: well nourished Orientation/consciousness: oriented to person, oriented to place and oriented to time HENMT Ears: TM's normal bilaterally General nose exam: Normal nasal mucous membranes and turbinates present Eyes Conjunctivae: conjunctivae normal Sclerae: sclerae normal Pupils: Equal, round and reactive pupils present Neck Neck: Yes no lymphadenopathy and Yes no JVD Thyroid: Thyroid normal Carotids: no bruits Resp Effort & Inspection: normal respiratory effort and not tachypneic Auscultation: no crackles, no rales, no rhonchi and no wheezes Cardio Rate: regular rate Rhythm: regular rhythm Heart sounds: no murmurs and normal S1 and S2 GI Palpation (GI): Soft to palpation, nontender, no hepatomegaly and no splenomegaly Auscultation: normal bowel sounds Skin General skin exam: no rashes or lesions noted and dry skin Neuro General: oriented to person, oriented to place and oriented to time Cranial nerves: Yes Equal, round and reactive pupils present Speech: No Abnormal speech present Gait exam (Neuro): Normal gait present Motor exam (neuro): no tremor noted Extrem Right upper extremity: full ROM Left upper extremity: full ROM Right lower extremity: full ROM; no edema Left lower extremity: full ROM; no edema Psych Mental Status: mental status grossly normal Speech and movement: Normal speech and movement present Affect: normal affect Attitude: cooperative Thought process: Normal thought process present Assessment and Plan Assessment & Plan (1) HTN (hypertension): Code(s): I10 - Essential (primary) hypertension Qualifiers: Hypertension type: primary hypertension Qualified Code(s): I10 - Essential (primary) hypertension Plan: Patient's blood pressure acceptable today in office. Continues on lisinopril 40 and amlodipine 5 mg. Advised to monitor blood pressure with goal blood pressure to be below 140/90 (2) ADD (attention deficit disorder): Code(s): F98.8 - Other specified behavioral and emotional disorders with onset usually occurring in childhood and adolescence Qualifiers: Attention deficit-hyperactivity disorder type: predominantly inattentive Hyperactivity presence: present Qualified Code(s): F90.0 - Attention-deficit hyperactivity disorder, predominantly inattentive type Plan: Patient has been suffering with a lack of focus and concentration. 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 He is willing to try non stimulant ADD medication. Will start with Strattera 40 mg for 2 weeks and up titrate to 80 mg which is the effective dose. (3) GERD (gastroesophageal reflux disease): Code(s): K21.9 - Gastro-esophageal reflux disease without esophagitis Qualifiers: Esophagitis presence: without esophagitis Qualified Code(s): K21.9 - Gastro-esophageal reflux disease without esophagitis Plan: Recent endoscopy showing inflammatory polyp. Has been started on omeprazole 20 mg. Advised to reduce his spaces in his food and reduce his caffeine and patient agrees and understands. (4) Borderline high cholesterol: Code(s): E78.9 - Disorder of lipoprotein metabolism, unspecified Plan: Patient does have a history of borderline high cholesterol. Will recheck a fasting lipid. Advised on low-cholesterol diet. (5) BPH (benign prostatic hyperplasia): Code(s): N40.0 - Benign prostatic hyperplasia without lower urinary tract symptoms Qualifiers: Lower urinary tract symptom presence: symptoms absent Qualified Code(s): N40.0 - Benign prostatic hyperplasia without lower urinary tract symptoms Plan: Patient does report a previous history of BPH. He denies any symptoms at this time. Will check a PSA. (6) Obese: Code(s): E66.9 - Obesity, unspecified Qualifiers: Body mass index: BMI 33.0-33.9 Obesity classification: adult class 1 (BMI 30 - 34.9) Obesity type: due to excess calories Serious obesity comorbidity presence: with serious comorbidity Qualified Code(s): E66.09 - Other obesity due to excess calories; Z68.33 - Body mass index [BMI] 33.0-33.9, adult Plan: He does understand his BMI is over 30 will try to work on being more physically active and adapt to better eating habits to reduce his weight. Orders: Orders Complete Blood Count no Diff Today K21.9 - Gastro-esophageal reflux disease without esophagitis Lipid Panel Today E78.9 - Disorder of lipoprotein metabolism, unspecified Microalbumin, Random (w Creat) Today I10 - Essential (primary) hypertension Comprehensive [place]. Panel Fast Today I10 - Essential (primary) hypertension Prostate Specific Antigen Scr Today N40.0 - Benign prostatic hyperplasia without lower urinary tract symptoms, Z12.5 - Encounter for screening for malignant neoplasm of prostate Medications: New atomoxetine (Strattera) 40 mg PO DAILY 14 days 14 caps 0RF F90.0 - Attention- deficit hyperactivity disorder, predominantly inattentive type atomoxetine (Strattera) 80 mg PO DAILY 30 days 30 caps 1RF F90.0 - Attention-de ficit hyperactivity disorder, predominantly inattentive type Changed From amlodipine 5 mg PO DAILY 90 tabs 0RF I10 - Essential (primary) hypertension To amlodipine 5 mg PO DAILY 90 days 90 tabs 1RF I10 - Essential (primary) hypertension From lisinopril 40 mg PO DAILY 90 tabs 0RF I10 - Essential (primary) hypertension To lisinopril 40 mg PO DAILY 90 days 90 tabs 1RF I10 - Essential (primary) hypertension Coding Level of Care Code New Pt Level 4 (43337) Diagnoses Primary hypertension I10 Hypertension type: primary hypertension Attention deficit hyperactivity disorder (ADHD), predominantly inattentive type F90.0 Attention deficit-hyperactivity disorder type: predominantly inattentive Hyperactivity presence: present Gastroesophageal reflux disease without esophagitis K21.9 Esophagitis presence: without esophagitis Borderline high cholesterol E78.9 Benign prostatic hyperplasia without lower urinary tract symptoms N40.0 Lower urinary tract symptom presence: symptoms absent Class 1 obesity due to excess calories with serious comorbidity and body mass index (BMI) of 33.0 to 33.9 in adult E66.09; Z68.33 Body mass index: BMI 33.0-33.9 Obesity classification: adult class 1 (BMI 30 - 34.9) Obesity type: due to excess calories Serious obesity comorbidity presence: with serious comorbidity Additional Codes MONICA-7 Assessment Billing - MONICA-7 Assessment Tool: MONICA-7 Assessment 69951 ([id number])
== END 2023-05-11 08:46 | disposition home or self-care (01) ==
PROVIDERS: PCP Physician Assistant; Visit Provider Physician Assistant
DX: I10 Essential (primary) hypertension (principal); F90.0 Attention-deficit hyperactivity disorder, predominantly inattentive type; K21.9 Gastro-esophageal reflux disease without esophagitis; E78.9 Disorder of lipoprotein metabolism, unspecified; N40.0 Benign prostatic hyperplasia without lower urinary tract symptoms; E66.09 Other obesity due to excess calories; Z68.33 Body mass index [BMI] 33.0-33.9, adult
CPT/HCPCS: 99204

== ENCOUNTER 2023-05-20 07:12 | Outpatient (REF) | payer OTHER, SELFPAY ==
[2023-05-20 08:11] LABS: Hematocrit 43.8 % (42.0-52.0); Hemoglobin 15.1 g/dl (14.0-18.0); Mean Corpuscular HGB Conc 34.5 g/dl (31.0-36.0); Mean Corpuscular Hemoglobin 31.8 pg (27.0-33.0); Mean Corpuscular Volume 92.2 fL (80.0-98.0); Mean Platelet Volume 9.8 fL (9.4-12.4); Platelet Count 251 X10*3/uL (160-400); Red Blood Count 4.75 X10*6/uL (4.60-5.80); Red Cell Distribution Width 12.2 % (11.0-16.0); White Blood Count 6.6 X10*3/uL (4.8-10.8)
[2023-05-20 08:37] LABS: Alanine Aminotransferase 51 U/L (0-40); Albumin Level 4.2 g/dL (3.5-5.0); Alkaline Phosphatase 97 U/L (39-117); Anion Gap 14 (12-20); Aspartate Amino Transferase 23 U/L (5-37); Bilirubin Total 1.1 mg/dL (0.0-1.0); Blood Urea Nitrogen 11 mg/dL (9-16); Calcium 9.4 mg/dL (8.4-10.2); Carbon Dioxide 27 mmol/L (22-29); Chloride 105 mmol/L (96-108); Cholesterol 184 mg/dL (<200); Estimated Glomerular Filt Rate > 60; Glucose Fasting 89 mg/dL (60-99); HDL Cholesterol 42 mg/dL (>40); LDL Cholesterol Calculated 128 mg/dL (<100); Sodium 142 mmol/L (135-145); Total Protein 7.2 g/dL (6.5-8.0); Triglycerides 74 mg/dL (<150)
[2023-05-20 09:00] LABS: Prostate Specific Antigen Scr 0.94 ng/mL (<0.05-4.0)
[2023-05-20 09:18] LABS: Creatinine Urine 301.53 mg/dL; Microalbum/Creatinine Ratio Ur 5.3 ug/mg cr (<30)
== END 2023-05-20 07:13 | disposition home or self-care (01) ==
LOC: HO.LAB 07:12
PROVIDERS: PCP Physician Assistant; Visit Provider Physician Assistant
DX: Z12.5 Encounter for screening for malignant neoplasm of prostate (principal); E78.9 Disorder of lipoprotein metabolism, unspecified; I10 Essential (primary) hypertension; N40.0 Benign prostatic hyperplasia without lower urinary tract symptoms; K21.9 Gastro-esophageal reflux disease without esophagitis
CPT/HCPCS: 36415; 80053; 80061; 82043; 82570; 84153; 85027

== ENCOUNTER 2023-08-15 07:52 | Outpatient (AMB) | payer OTHER, SELFPAY ==
--- NOTE | 2023-08-15 08:10 | MHC.PC.OV ---
Vital Signs 08/15/23 08:11 Height 5 ft 5.6 in Weight 206 lb BMI 33.7 BP 126/72 Blood Pressure Location Lt brachial Position Sitting Intake Visit Reasons: Annual Exam Intake Note: Patient here for a physical exam Credit Administration Officer Required: No Accompanied by: Self / Same As Patient Allergies atomoxetine [From Strattera] Adverse Reaction (Intermediate, Verified 08/15/23 08:33) Increased anxiety Medication List - Last Reconciled 08/15/23 by Panfilo Jeffers PA-C amlodipine 5 mg PO DAILY 90 days lisinopril 40 mg PO DAILY 90 days omeprazole 20 mg PO DAILY Tobacco use date assessed: 08/15/23 Dental Screening Dental Screen Date: 08/15/23 Did you have a dental visit in the last 12 months?: Yes Did you have a dental problem in the last 6 months where you did not have access to dental care?: No Was dental information given to patient?: Patient has dentist HPI Annual Exam HPI Details Patient is a 48-year-old male here today for a new patient here today for a annual physical. 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 ---concern-> he reports he continues to trouble staying focused on his school work. He had tried Strattera though felt some anxiety with his medication. He is interested in trying a stimulant medication as needed for his school studying. He is in a [employer] program. . .. Hypertension: Patient's blood pressure acceptable today in office. Continues lisinopril amlodipine with good effect on split pressure. Vaccines: Up-to-date with COVID vaccine, pneumonia and tetanus vaccines. Colon cancer screening: Colonoscopy done in 2022 needs repeat in 5 years Laboratory Tests 12/05/19 12/23/22 05/20/23 06:00 07:42 07:30 Hct Creatinine Fasting Glucose ALT 47 H Cholesterol 226 LDL Cholesterol, C alc PSA Screen Urine Microalbumin 16.0 05/20/23 05/20/23 05/20/23 07:40 07:40 07:40 Hct Creatinine 0.88 Fasting Glucose 89 ALT 51 H Cholesterol 184 LDL Cholesterol, C alc 128 H PSA Screen 0.94 Urine Microalbumin 05/20/23 07:40 Hct 43.8 Creatinine Fasting Glucose ALT Cholesterol LDL Cholesterol, C alc PSA Screen Urine Microalbumin [facility] Medical History Abnormal CT of the abdomen HTN (hypertension) Surgical History History of esophagogastroduodenoscopy (EGD) Hx of colonoscopy History of cholecystectomy (~2007) Family History (Updated 08/15/23 @ 08:18 by Panfilo Jeffers PA-C) Mother Uterus cancer Father Stomach cancer Social History Household Members: Family Household Members Other:: 4 kids Housing: House Alcohol intake: never Patient Tobacco Use Status: Former Tobacco user Tobacco use type: Cigarette e-Cigarette/Vaping Use: Never Used Second Hand Smoke Exposure: No service: No Current occupational status: employed Current occupation: RN- ED psych Cognitive needs: No Hearing needs: No Vision needs: Yes Questionnaire PHQ-9 Over the last 2 weeks, how often have you been bothered by any of the following problems? 1. Little interest or pleasure in doing things: not at all 2. Feeling down, depressed, or hopeless: not at all 3. Trouble falling or staying asleep, or sleeping too much: not at all 4. Feeling tired or having little energy: not at all 5. Poor appetite or overeating: not at all 6. Feeling bad about yourself - or that you are a failure or have let yourself or your family down: not at all 7. Trouble concentrating on things, such as reading the newspaper or watching television: not at all 8. Moving or speaking so slowly that other people could have noticed. Or the opposite - being so fidgety or restless that you have been moving around a lot more than usual: not at all 9. Thoughts that you would be better off or of hurting yourself in some way: not at all Total score: 0 Depression Screening Interpretation: Negative Depression Screening Done: Yes 25644 - PHQ-9 Billing: Yes Source: Developed by Drs. Jde Askew, Jeri Silver, Bay Dan and colleagues, with an educational helio from [employer]. Thrive Questionnaire Date Thrive assessed: 08/15/23 I am a: Patient What is your living situation today?: I have a steady place to live Within the past 12 months, did the food you bought not last and you didn't have the money to get more?: Never true Within the past 12 months, did you worry whether your food would run out before you got money to buy more?: Never true Do you have trouble paying for medicines?: No Do you have trouble getting transportation to medical appointments?: No Do you have trouble paying your heating and electricity bill?: No Do you have trouble taking care of your child, family member or friend?: No Do you have trouble with day-to-day activities such as bathing, preparing meals, shopping, managing finances, etc.?: No Are you currently unemployed and looking for a job?: No Are you interested in more education?: No Please select the resources that you would like help with: None Currently or been in a relationship where the following occur: no concerns reported THRIVE Score: 0 AUDIT C Alcohol Use Questionnaire (AUDIT-C) 1. How often do you have a drink containing alcohol?: Never Total Score: 0 MONICA-7 AMB Questionnaire MONICA-7 Date MONICA - 7 assessed: 08/15/23 Feeling nervous, anxious, or on edge: 0 = Not at all Not being able to stop or control worryin = Not at all Worrying too much about different things: 0 = Not at all Trouble relaxin = Not at all Being so restless that it is hard to sit still: 0 = Not at all Becoming easily annoyed or irritable: 0 = Not at all Feeling afraid as if something awful might happen: 0 = Not at all Total MONICA-7 score (0-4 normal; 5-9 mild; 10-14 moderate; 15-21 severe): 0 Source: Developed by Drs. Jed Askew, Jeri Silver, Bay Dan and colleagues, with an educational helio from [employer]. MONICA-7 Assessment Billing MONICA-7 Assessment Tool: MONICA-7 Assessment 36493 Review of Systems Const Denies body aches, Denies chills, Denies excessive sweating, Denies fatigue, Denies fever(s) and Denies headache(s) Eyes Denies blurry vision ENT Denies dysphagia, Denies vertigo, Denies dizziness, Denies headache(s), Denies hearing loss and Denies tinnitus Card Denies chest pain, Denies chest pain with activity, Denies syncope, Denies irregular heart rhythm and Denies dyspnea Resp Denies chest congestion, Denies cough, Denies hemoptysis, Denies dyspnea and Denies wheezing GI Denies abdominal pain, Denies melena, Denies hematochezia, Denies coffee ground emesis, Denies dysphagia, Denies diarrhea, Denies nausea and Denies vomiting Denies difficulty urinating, Denies dysuria, Denies urinary frequency, Denies urinary hesitancy and Denies urinary urgency Musc Denies arthralgias, Denies limited range of motion, Denies muscle cramps and Denies muscle weakness Skin/Breast Denies rash and Denies skin ulcer Neuro Denies Abnormal speech present, Denies confusion, Denies vertigo, Denies dizziness, Denies syncope, Denies headache(s), Denies memory loss and Denies seizure-like activity Psych Denies anxiety, Denies confusion, Denies depression, Denies memory loss, Denies panic attacks and Denies paranoia Endo Denies excessive sweating, Denies fatigue, Denies flushing, Denies polydipsia and Denies polyuria Aller/Immun Denies wheezing Physical exam (Primary Care) BMI result Body Mass Index 33.7 Tobacco/Smoking Status: Tobacco use Status Tobacco use date assessed 05/11/23 05/11/23 08:18 Patient Tobacco Use Status Former Tobacco user 05/11/23 08:18 Tobacco use type Cigarette 05/11/23 08:18 e-Cigarette/Vaping Use Never Used 05/11/23 08:18 Depression Screening Interpretation: Negative Thrive Assessment: Date of Thrive Assessment Date Thrive assessed 05/11/23 05/11/23 08:18 Currently or been in a relationship where the following occur: no concerns reported Const General: cooperative, comfortable, no acute distress, alert and awake; No confusion Orientation/consciousness: oriented to person, oriented to place, patient oriented x3 and No confusion HENMT Head: Yes normocephalic Ears: external ears normal and TM's normal bilaterally Face and sinus: No sinus tenderness Mouth: Normal oral and palatal mucosa present and tongue normal Teeth and gingiva: dentition normal and gingiva normal Throat: Yes posterior oropharynx normal, Yes tonsils normal and Yes uvula midline Eyes Conjunctivae: conjunctivae normal Sclerae: sclerae normal Pupils: Equal, round and reactive pupils present EOM: EOMs intact bilaterally Direct Ophthalmoscopy: No no photophobia Neck Neck: Yes no lymphadenopathy, No tender and Yes no JVD Thyroid: Thyroid normal Carotids: no bruits Chest Chest palpation & inspection: no tenderness Resp Effort & Inspection: normal respiratory effort, no audible wheezes, not labored and no stridor Auscultation: no crackles, no rales, no rhonchi and no wheezes Cardio Jugular venous distension: no JVD Rate: regular rate, not bradycardic and not tachycardic Rhythm: regular rhythm Bruits: no carotid bruits Peripheral pulses: Peripheral pulses 2+ throughout GI Inspection: Yes normal to inspection, No abdominal wall ecchymosis and No visible herniation Palpation (GI): Soft to palpation, nontender, no guarding, not rigid and No hepatosplenomegaly present Auscultation: normoactive bowel sounds General: Yes no CVA tenderness Back/Spine/Pelvis Back: no CVA tenderness and No back tenderness Cervical Spine: cervical ROM normal Thoracic/Lumbar Spine: thoracic and lumbar spine normal to inspection, straight leg raise negative bilaterally, No thoraco-lumbar ROM limited and No lumbar spinal tenderness Skin Lesions: no lesions Rashes: no rashes Wounds: no wounds Neuro General: oriented to person, oriented to place, patient oriented x3, CN's II-XI intact bilaterally and No confusion Cranial nerves: Yes Equal, round and reactive pupils present and Yes Normal accommodation reflex present Cognition (Neuro): normal cognition Speech: No Abnormal speech present Gait exam (Neuro): Normal gait present Motor exam (neuro): 5/5 motor strength present throughout Extrem Right upper extremity: full ROM; no cyanosis Left upper extremity: full ROM; no cyanosis Right lower extremity: no edema Left lower extremity: no edema Psych Appearance: grossly normal Mental Status: mental status grossly normal Affect: normal affect Attitude: cooperative Thought process: Normal thought process present Assessment and Plan Assessment & Plan (1) Annual physical exam: Code(s): Z00.00 - Encounter for general adult medical examination without abnormal findings (2) HTN (hypertension): Code(s): I10 - Essential (primary) hypertension Qualifiers: Hypertension type: primary hypertension Qualified Code(s): I10 - Essential (primary) hypertension Plan: Patient's blood pressure acceptable today in office. Continues on lisinopril 40 and amlodipine 5 mg. Advised to monitor blood pressure with goal blood pressure to be below 140/90 (3) ADD (attention deficit disorder): Code(s): F98.8 - Other specified behavioral and emotional disorders with onset usually occurring in childhood and adolescence Qualifiers: Attention deficit-hyperactivity disorder type: predominantly inattentive Hyperactivity presence: present Qualified Code(s): F90.0 - Attention-deficit hyperactivity disorder, predominantly inattentive type Plan: Patient has been suffering with a lack of focus and concentration. 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 Has tried Strattera as a non stimulant though felt increased anxiety and has stopped this medication. He is still looking for help to focus on school work during his semester on an as-needed basis. He is willing to trial low-dose Adderall on as needed basis for school studying and work. (4) GERD (gastroesophageal reflux disease): Code(s): K21.9 - Gastro-esophageal reflux disease without esophagitis Qualifiers: Esophagitis presence: without esophagitis Qualified Code(s): K21.9 - Gastro-esophageal reflux disease without esophagitis Plan: Recent endoscopy showing inflammatory polyp. Has been started on omeprazole 20 mg. Advised to reduce his spaces in his food and reduce his caffeine and patient agrees and understands. (5) Borderline high cholesterol: Code(s): E78.9 - Disorder of lipoprotein metabolism, unspecified Plan: Patient does have a history of borderline high cholesterol. Most recent lipid panel showing improved total cholesterol. (6) BPH (benign prostatic hyperplasia): Code(s): N40.0 - Benign prostatic hyperplasia without lower urinary tract symptoms Qualifiers: Lower urinary tract symptom presence: symptoms absent Qualified Code(s): N40.0 - Benign prostatic hyperplasia without lower urinary tract symptoms Plan: Patient does report a previous history of BPH. He denies any symptoms at this time. PSA is normal (7) Obese: Code(s): E66.9 - Obesity, unspecified Qualifiers: Body mass index: BMI 33.0-33.9 Obesity classification: adult class 1 (BMI 30 - 34.9) Obesity type: due to excess calories Serious obesity comorbidity presence: with serious comorbidity Qualified Code(s): E66.09 - Other obesity due to excess calories; Z68.33 - Body mass index [BMI] 33.0-33.9, adult Plan: He does understand his BMI is over 30 will try to work on being more physically active and adapt to better eating habits to reduce his weight. Orders: Orders Prostate Specific Antigen Scr 6 Months N40.0 - Benign prostatic hyperplasia without lower urinary tract symptoms, Z12.5 - Encounter for screening for malignant neoplasm of prostate Comprehensive [place]. Panel Fast 6 Months I10 - Essential (primary) hypertension Lipid Panel 6 Months E78.9 - Disorder of lipoprotein metabolism, unspecified Microalbumin, Random (w Creat) 6 Months I10 - Essential (primary) hypertension Complete Blood Count no Diff 6 Months R13.10 - Dysphagia, unspecified Medications: New dextroamphetamine-amphetamine 10 mg ER (Adderall XR) Partial Fill upon patient request. 10 mg PO DAILY PRN 10 caps 0RF attention and focusing 10 days F90.0 - Attention-deficit hyperactivity disorder, predominantly inattentive type Refilled amlodipine 5 mg PO DAILY 90 tabs 1RF 90 days I10 - Essential (primary) hypertension lisinopril 40 mg PO DAILY 90 tabs 1RF 90 days I10 - Essential (primary) hypertension Coding Level of Care Code Est Pt Prev Care 40-64y(93356) Diagnoses Annual physical exam Z00.00 Primary hypertension I10 Hypertension type: primary hypertension Attention deficit hyperactivity disorder (ADHD), predominantly inattentive type F90.0 Attention deficit-hyperactivity disorder type: predominantly inattentive Hyperactivity presence: present Gastroesophageal reflux disease without esophagitis K21.9 Esophagitis presence: without esophagitis Borderline high cholesterol E78.9 Benign prostatic hyperplasia without lower urinary tract symptoms N40.0 Lower urinary tract symptom presence: symptoms absent Class 1 obesity due to excess calories with serious comorbidity and body mass index (BMI) of 33.0 to 33.9 in adult E66.09; Z68.33 Body mass index: BMI 33.0-33.9 Obesity classification: adult class 1 (BMI 30 - 34.9) Obesity type: due to excess calories Serious obesity comorbidity presence: with serious comorbidity Additional Codes MONICA-7 Assessment Billing - MONICA-7 Assessment Tool: MONICA-7 Assessment [id number] ([id number])
[2023-08-15 08:11] VITALS: BP 126/72; BMI 33.7
== END 2023-08-15 08:29 | disposition home or self-care (01) ==
PROVIDERS: PCP Physician Assistant; Visit Provider Physician Assistant
DX: Z00.00 Encounter for general adult medical examination without abnormal findings (principal); I10 Essential (primary) hypertension; F90.0 Attention-deficit hyperactivity disorder, predominantly inattentive type; K21.9 Gastro-esophageal reflux disease without esophagitis; E78.9 Disorder of lipoprotein metabolism, unspecified; N40.0 Benign prostatic hyperplasia without lower urinary tract symptoms; E66.09 Other obesity due to excess calories; Z68.33 Body mass index [BMI] 33.0-33.9, adult
CPT/HCPCS: 99396

== ENCOUNTER 2024-01-31 07:33 | Outpatient (REF) | payer OTHER, SELFPAY ==
--- NOTE | ~2024-01-31 | XR_ITS ---
EXAMINATION: XR CHEST CLINICAL INFORMATION: Screening for pulmonary tuberculosis COMPARISON: Chest x-ray on 02/03/2011 TECHNIQUE: PA and lateral views of the chest were obtained. FINDINGS: HEART & VASCULARITY: There are normal cardiac size and pulmonary vascularity. LUNGS: Lungs are clear. No pneumothorax is seen. BONES: Bony skeleton is intact. XR/XR chest 2V IMPRESSION: Unchanged Normal chest x-ray. Electronically signed by: Kathryn Tinajero MD 01/31/2024 08:02 AM EDT
== END 2024-01-31 07:34 | disposition home or self-care (01) ==
LOC: HO.XRAY 07:33
PROVIDERS: PCP Physician Assistant; Visit Provider Physician Assistant
DX: Z11.1 Encounter for screening for respiratory tuberculosis (principal)
CPT/HCPCS: 71046

== ENCOUNTER 2024-08-19 08:03 | Outpatient (AMB) | payer OTHER, SELFPAY ==
--- NOTE | 2024-08-19 08:08 | A.OFFPC_ITS ---
Vital Signs 08/19/24 08:10 Height 5 ft 5.6 in Weight 205 lb BMI 33.5 BP 126/82 Blood Pressure Location Lt brachial Position Sitting Intake Visit Reasons: Annual Exam Intake Note: Patient here for a physical exam Pin Worker Required: No Accompanied by: Self / Same As Patient Allergies atomoxetine [From Strattera] Adverse Reaction (Intermediate, Verified 08/19/24 08:18) Increased anxiety Medication List - Last Reconciled 08/19/24 by Panfilo Jeffers PA-C amlodipine 5 mg PO DAILY 90 days dextroamphetamine-amphetamine 10 mg ER (Adderall XR) 10 mg PO DAILY PRN 10 days lisinopril 40 mg PO DAILY 90 days omeprazole 20 mg PO DAILY Tobacco use date assessed: 08/19/24 Dental Screening Dental Screen Date: 08/19/24 Did you have a dental visit in the last 12 months?: Yes Did you have a dental problem in the last 6 months where you did not have access to dental care?: No Was dental information given to patient?: Patient has dentist HPI Annual Exam HPI Details Patient is a 49-year-old male here today for a routine annual physical. Patient has a past medical history significant for hypertension, GERD, BPH, history of borderline cholesterol > Concern--> he reports having right shoulder pain particularly at the lateral aspect of his right shoulder. He denies any notable trauma to his right shoulder though felt he may have slept wrong. 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 ADD> he reports he continues to trouble staying focused on his school work. He had tried Strattera though felt some anxiety with his medication. He is in a [employer] program. He does use Adderall for his attention focus on a as needed basis to help study for exams which helps tremendously. .. Hypertension: Patient's blood pressure acceptable today in office. Continues lisinopril amlodipine with good effect on split pressure. Vaccines: Up-to-date with COVID vaccine, pneumonia and tetanus vaccines, Need PCV-20 Colon cancer screening: Colonoscopy done in 2022 needs repeat in 5 years Laboratory Tests 12/05/19 12/23/22 05/20/23 06:00 07:42 07:30 Hct Creatinine Fasting Glucose ALT 47 H Cholesterol 226 LDL Cholesterol, C alc PSA Screen Urine Microalbumin 16.0 05/20/23 05/20/23 05/20/23 07:40 07:40 07:40 Hct Creatinine 0.88 Fasting Glucose 89 ALT 51 H Cholesterol 184 LDL Cholesterol, C alc 128 H PSA Screen 0.94 Urine Microalbumin 05/20/23 07:40 Hct 43.8 Creatinine Fasting Glucose ALT Cholesterol LDL Cholesterol, C alc PSA Screen Urine Microalbumin [facility] Medical History Abnormal CT of the abdomen HTN (hypertension) Surgical History History of esophagogastroduodenoscopy (EGD) Hx of colonoscopy History of cholecystectomy (~2007) Family History Mother Uterus cancer Father Stomach cancer Social History Household Members: Family Household Members Other:: 4 kids Housing: House Alcohol intake: never Patient Tobacco Use Status: Former Tobacco user Tobacco use type: Cigarette e-Cigarette/Vaping Use: Never Used Second Hand Smoke Exposure: No service: No Current occupational status: employed Current occupation: RN- ED psych Cognitive needs: No Hearing needs: No Vision needs: Yes Questionnaire PHQ-9 Over the last 2 weeks, how often have you been bothered by any of the following problems? 1. Little interest or pleasure in doing things: several days 2. Feeling down, depressed, or hopeless: not at all 3. Trouble falling or staying asleep, or sleeping too much: not at all 4. Feeling tired or having little energy: several days 5. Poor appetite or overeating: several days 6. Feeling bad about yourself - or that you are a failure or have let yourself or your family down: not at all 7. Trouble concentrating on things, such as reading the newspaper or watching television: several days 8. Moving or speaking so slowly that other people could have noticed. Or the opposite - being so fidgety or restless that you have been moving around a lot more than usual: not at all 9. Thoughts that you would be better off or of hurting yourself in some way: not at all Total score: 4 Depression Screening Interpretation: Positive Depression Screening Follow-up: Existing condition Depression Screening Done: Yes 42991 - PHQ-9 Billing: Yes Source: Developed by Drs. Jed Askew, Jeri Silver, Bay Dan and colleagues, with an educational helio from [employer]. Thrive Questionnaire Date Thrive assessed: 08/19/24 I am a: Patient What is your living situation today?: I have a steady place to live Within the past 12 months, did the food you bought not last and you didn't have the money to get more?: Often true Within the past 12 months, did you worry whether your food would run out before you got money to buy more?: Never true Do you have trouble paying for medicines?: No Do you have trouble getting transportation to medical appointments?: No Do you have trouble paying your heating and electricity bill?: No Do you have trouble taking care of your child, family member or friend?: No Do you have trouble with day-to-day activities such as bathing, preparing meals, shopping, managing finances, etc.?: No Are you currently unemployed and looking for a job?: No Are you interested in more education?: Yes Please select the resources that you would like help with: Education Currently or been in a relationship where the following occur: I choose not to answer THRIVE Score: 1 AUDIT C Alcohol Use Questionnaire (AUDIT-C) 1. How often do you have a drink containing alcohol?: Never Total Score: 0 MONICA-7 AMB Questionnaire MONICA-7 Date MONICA - 7 assessed: 08/19/24 Feeling nervous, anxious, or on edge: 0 = Not at all Not being able to stop or control worryin = Not at all Worrying too much about different things: 0 = Not at all Trouble relaxin = Not at all Being so restless that it is hard to sit still: 0 = Not at all Becoming easily annoyed or irritable: 0 = Not at all Feeling afraid as if something awful might happen: 0 = Not at all Total MONICA-7 score (0-4 normal; 5-9 mild; 10-14 moderate; 15-21 severe): 0 Source: Developed by Drs. Jed Askew, Bay Beck and colleagues, with an educational helio from [employer]. MONICA-7 Assessment Billing MONICA-7 Assessment Tool: MONICA-7 Assessment 57758 Review of Systems Const Denies excessive sweating, Denies fatigue and Denies headache(s) Eyes Denies loss of vision ENT Denies vertigo, Denies dizziness, Denies headache(s) and Denies sore throat Card Denies chest pain, Denies leg edema and Denies lightheadedness Resp Denies cough, Denies hemoptysis and Denies wheezing GI Denies abdominal pain, Denies melena, Denies constipation, Denies diarrhea and Denies vomiting Denies dysuria, Denies urinary frequency and Denies urinary urgency Musc Denies arthralgias, Denies joint swelling, Denies numbness and Denies tingling Skin/Breast Denies rash and Denies skin ulcer Neuro Denies Abnormal speech present, Denies behavioral changes, Denies vertigo, Denies dizziness, Denies headache(s), Denies loss of vision, Denies memory loss, Denies numbness and Denies tingling Psych Denies anxiety, Denies behavioral changes, Denies depression, Denies memory loss and Denies panic attacks Endo Denies excessive sweating, Denies fatigue, Denies flushing, Denies polydipsia and Denies polyuria Bryant/Lymph Denies easy bleeding and Denies easy bruising Aller/Immun Denies wheezing Physical exam (Primary Care) Vital Signs: Last Vital Signs BP 126/82 08/19/24 08:10 BMI result Body Mass Index 33.5 BMI Assessment/Plan discussion: High BMI High, discussed plan: lifestyle, weight reduction, dietary and physical activity Tobacco/Smoking Status: Tobacco use Status Tobacco use date assessed 08/19/24 08/19/24 08:16 Patient Tobacco Use Status Former Tobacco user 08/19/24 08:16 Tobacco use type Cigarette 08/19/24 08:16 e-Cigarette/Vaping Use Never Used 08/19/24 08:16 PHQ-9: PHQ-9 Score PHQ-9: Total score 4 08/19/24 08:48 Depression Screening Interpretation: Positive Depression Screening Follow-up: Existing condition Thrive Assessment: Date of Thrive Assessment Date Thrive assessed 08/19/24 08/19/24 08:16 Currently or been in a relationship where the following occur: I choose not to answer Const General: healthy appearing, no acute distress, alert and awake Nutritional Appearance: well nourished Orientation/consciousness: oriented to person, oriented to place and oriented to time HENMT Head: Yes normocephalic Ears: TM's normal bilaterally General nose exam: Normal nasal mucous membranes and turbinates present Face and sinus: No sinus tenderness Mouth: Normal oral and palatal mucosa present and tongue normal Teeth and gingiva: dentition normal and gingiva normal Throat: Yes posterior oropharynx normal, Yes tonsils normal and Yes uvula midline Eyes Conjunctivae: conjunctivae normal Sclerae: sclerae normal Pupils: Equal, round and reactive pupils present EOM: EOMs intact bilaterally Direct Ophthalmoscopy: No no photophobia Neck Neck: Yes no lymphadenopathy and Yes no JVD Thyroid: Thyroid normal Carotids: no bruits Chest Chest palpation & inspection: no tenderness Resp Effort & Inspection: normal respiratory effort and not tachypneic Auscultation: no crackles, no rales, no rhonchi and no wheezes Cardio Jugular venous distension: no JVD Rate: regular rate Rhythm: regular rhythm Heart sounds: no murmurs and normal S1 and S2 Bruits: no carotid bruits Peripheral pulses: Peripheral pulses 2+ throughout GI Inspection: Yes normal to inspection, No abdominal wall ecchymosis and No visible herniation Palpation (GI): Soft to palpation, nontender, no hepatomegaly and no splenomegaly Auscultation: normal bowel sounds General: Yes no CVA tenderness Back/Spine/Pelvis Back: no CVA tenderness and No back tenderness Cervical Spine: cervical ROM normal Thoracic/Lumbar Spine: thoracic and lumbar spine normal to inspection, straight leg raise negative bilaterally, No thoraco-lumbar ROM limited and No lumbar spinal tenderness Skin General skin exam: no rashes or lesions noted and dry skin Lesions: no lesions Rashes: no rashes Wounds: no wounds Neuro General: oriented to person, oriented to place and oriented to time Cranial nerves: Yes Equal, round and reactive pupils present Cognition (Neuro): normal cognition Speech: No Abnormal speech present Gait exam (Neuro): Normal gait present Motor exam (neuro): no tremor noted Extrem Right upper extremity: full ROM Left upper extremity: full ROM Right lower extremity: full ROM; no edema Left lower extremity: full ROM; no edema Psych Appearance: grossly normal Mental Status: mental status grossly normal Speech and movement: Normal speech and movement present Affect: normal affect Attitude: cooperative Thought process: Normal thought process present Immunizations pneumoc 20-tabby conj-dip cr(PF) 0.5 mL IM syringe Performing Provider: Panfilo Jeffers PA-C [facility] Administered by: DOREEN Wolfe on 08/19/24 08:48 Dose Route Admin Location Dispensed Lot Number Expiration Date NDC Interactive Marketing Strategist 0.5 mL IM Left Deltoid 0.5 mL [id number] 10/10/25 Bright Pattern/Placely VIS Given Date VIS Provided VIS Publication Date 08/19/24 Single Vaccine 21 Eligibility Eligibility Date Funding Source Not [facility] Eligible 08/19/24 Private Coding Level of Care Code Est Pt Prev Care 40-64y(13032) Diagnoses Annual physical exam Z00.00 Right shoulder tendinitis M77.8 Borderline high cholesterol E78.9 Subacute cough R05.2 Cough type: subacute Class 1 obesity E66.811 Additional Codes PHQ-9 - 91411 - PHQ-9 Billing: Yes ([id number]) MONICA-7 Assessment Billing - MONICA-7 Assessment Tool: MONICA-7 Assessment 28688 ([id number]) Assessment & Plan Assessment & Plan (1) Annual physical exam: Code(s): Z00.00 - Encounter for general adult medical examination without abnormal findings Category: Medical Plan: As per HPI (2) Right shoulder tendinitis: Code(s): M77.8 - Other enthesopathies, not elsewhere classified Category: Medical Plan: Advised on conservative treatment for possible right shoulder tendinitis. We will consider x-ray to evaluate for arthritis. (3) Borderline high cholesterol: Code(s): E78.9 - Disorder of lipoprotein metabolism, unspecified Category: Medical Plan: Patient does have a history of borderline high cholesterol. He will continue working on lifestyle and dietary modifications. Goal LDL to be below 130 (4) Cough: Code(s): R05.9 - Cough, unspecified Category: Medical Qualifiers: Cough type: subacute Qualified Code(s): R05.2 - Subacute cough Plan: He does report having a mild cough and some throat congestion quite often. Has had endoscopies in the past and did have a balloon dilation. He wonders if he does have an allergy component thus will send for allergy testing including food allergy testing. (5) Class 1 obesity: Code(s): E66.811 - Obesity, class 1 Category: Medical Plan: Patient does understand his BMI is over 30 will work on being more physically active and adapting to better eating habits to reduce his weight Orders: Orders Comprehensive [place]. Panel Fast 08/19/24 I10 - Essential (primary) hypertension Complete Blood Count no Diff 08/19/24 I10 - Essential (primary) hypertension Pneumococcal 20 Immunization 08/19/24 Z23 - Encounter for immunization Microalbumin, Random (w Creat) 08/19/24 I10 - Essential (primary) hypertension Prostate Specific Antigen Scr 08/19/24 I10 - Essential (primary) hypertension, Z12.5 - Encounter for screening for malignant neoplasm of prostate XR shoulder RT min 2V 08/19/24 M77.8 - Other enthesopathies, not elsewhere classified Resp Allergy Profile Region I 08/19/24 R05.9 - Cough, unspecified Medications: Changed From dextroamphetamine-amphetamine 10 mg ER (Adderall XR) Partial Fill upon patient request. 10 mg PO DAILY 10 days PRN 10 caps 0RF attention and focusing F90.0 - Attention-deficit hyperactivity disorder, predominantly inattentive type To dextroamphetamine-amphetamine 10 mg ER (Adderall XR) Partial Fill upon patient request. 10 mg PO DAILY PRN 28 caps 0RF attention and focusing 28 days F90.0 - Attention-deficit hyperactivity disorder, predominantly inattentive type Patient Instructions: Goal: Blood pressure to remain below 140/90 Barriers: Adherence to physical activity and healthy eating habits
[2024-08-19 08:10] VITALS: BP 126/82; BMI 33.5
== END 2024-08-19 08:56 | disposition home or self-care (01) ==
PROVIDERS: PCP Physician Assistant; Visit Provider Physician Assistant
DX: Z23 Encounter for immunization (principal)

== ENCOUNTER → 2024-08-19 08:03 | Outpatient (BNVA) | payer OTHER, SELFPAY | PROVIDERS: PCP Physician Assistant; Visit Provider Physician Assistant | DX: Z00.00 Encounter for general adult medical examination without abnormal findings (principal); I10 Essential (primary) hypertension; K21.9 Gastro-esophageal reflux disease without esophagitis; N40.0 Benign prostatic hyperplasia without lower urinary tract symptoms; F98.8 Other specified behavioral and emotional disorders with onset usually occurring in childhood and adolescence; M77.8 Other enthesopathies, not elsewhere classified; R05.2 Subacute cough; E78.9 Disorder of lipoprotein metabolism, unspecified; E66.811 Obesity, class 1; Z23 Encounter for immunization; Z68.33 Body mass index [BMI] 33.0-33.9, adult | CPT/HCPCS: 90471; 90677; 96127 ==

== ENCOUNTER 2024-08-30 07:20 | Outpatient (REF) | payer OTHER, SELFPAY ==
[2024-08-30 08:02] LABS: Hematocrit 44.2 % (42.0-52.0); Hemoglobin 15.5 g/dl (14.0-18.0); Mean Corpuscular HGB Conc 35.1 g/dl (31.0-36.0); Mean Corpuscular Hemoglobin 32.1 pg (27.0-33.0); Mean Corpuscular Volume 91.5 fL (80.0-98.0); Platelet Count 259 X10*3/uL (160-400); Red Blood Count 4.83 X10*6/uL (4.60-5.80); Red Cell Distribution Width 12.2 % (11.0-16.0)
[2024-08-30 08:33] LABS: Creatinine Urine 94.62 mg/dL; Microalbumin Urine < 5.0 mg/L
[2024-08-30 08:34] LABS: Alanine Aminotransferase 48 U/L (0-40); Albumin Level 4.2 g/dL (3.5-5.0); Alkaline Phosphatase 86 U/L (39-117); Anion Gap 10 (12-20); Aspartate Amino Transferase 25 U/L (5-37); Bilirubin Total 0.9 mg/dL (0.0-1.0); Blood Urea Nitrogen 12 mg/dL (9-16); Calcium 9.2 mg/dL (8.4-10.2); Carbon Dioxide 26 mmol/L (22-29); Chloride 106 mmol/L (96-108); Cholesterol 199 mg/dL (<200); Estimated Glomerular Filt Rate > 60; Glucose Fasting 91 mg/dL (60-99); HDL Cholesterol 47 mg/dL (>40); LDL Cholesterol Calculated 135 mg/dL (<100); Potassium 3.7 mmol/L (3.3-5.1); Sodium 138 mmol/L (135-145); Total Protein 7.6 g/dL (6.5-8.0); Triglycerides 89 mg/dL (<150)
[2024-09-05 20:19] LABS: Class Alternaria alternata 0; Class Aspergillus fumigatus 0; Class Bermuda Grass 0; Class Birch 0; Class Cat Dander 0; Class Cladosporium herbarum 0; Class Cockroach 0/1; Class Common Ragweed 0; Class Cottonwood 0; Class Derm. pterony 0/1; Class Dermatophagoides farinae 0/1; Class Dog Dander 0; Class Elm 0; Class Maple Box Elder 0; Class Mountain Cedar 0; Class Mouse Urine Protein 0; Class Mugwort 0; Class Oak 0; Class Penicillium crysogenum 0; Class Rough Pigweed 0; Class Sheep Sorrel 0; Class Sycamore 0; Class Timothy Grass 0; Class Walnut Tree 0; Class White Ash 0; Class White Mulberry 0; D001 IgE D pteronyssinus 0.15 kU/L; D002 - IgE D farinae 0.14 kU/L; E001 - IgE Cat Dander <0.10 kU/L; E005 - IgE Dog Dander <0.10 kU/L; E072-IgE Mouse Urine <0.10 kU/L; G002 IgE Bermuda Grass <0.10 kU/L; G006 - IgE Timothy Grass <0.10 kU/L; I006-IgE Cockroach, German 0.19 kU/L; Immunoglobulin E 42 kU/L (<OR=114); M001 IgE Penicillium chrysogen <0.10 kU/L; M002 - IgE Cladosporium herbar <0.10 kU/L; M003 - IgE Aspergillus fumigat <0.10 kU/L; M006 - IgE Alternaria alternat <0.10 kU/L; T001 IgE Maple/Box Elder <0.10 kU/L; T003 IgE Common Silver Birch <0.10 kU/L; T006 - IgE Cedar, Mountain <0.10 kU/L; T007 - IgE Oak, White <0.10 kU/L; T008 IgE Elm, American <0.10 kU/L; T010 - IgE Walnut <0.10 kU/L; T011 - IgE Maple Leaf Sycamore <0.10 kU/L; T014 - IgE Cottonwood <0.10 kU/L; T015 - IgE Ash, White <0.10 kU/L; T070 - IgE White Mulberry <0.10 kU/L; W001 - IgE Ragweed, Short <0.10 kU/L; W006 - IgE Mugwort <0.10 kU/L; W014 IgE Pigweed, Common <0.10 kU/L; W018 IgE Sheep Sorrel <0.10 kU/L
[2024-09-13 11:45] LABS: F001-IgE Egg White <0.10; F024-IgE Shrimp 0.13
[2024-09-13 11:46] LABS: Class Almond 0; Class Codfish 0; Class Cow's Milk 0; Class Egg white 0; Class Hazelnut 0; Class Macadamia Nut 0; Class Peanut 0; Class Scallop 0; Class Sesame Seed 0; Class Shrimp 0/1; Class Soybean 0; Class Tuna 0; Class Walnut 0; Class Wheat 0; F002-IgE Milk <0.10; F003-IgE Codfish <0.10; F004-IgE Wheat <0.10; F010-IgE Sesame Seed <0.10; F013-IgE Peanut <0.10; F014-IgE Soybean <0.10; F017-IgE Hazelnut (Filbert) <0.10; F020-IgE Almond <0.10; F040-IgE Tuna <0.10; F202-IgE Cashew Nut <0.10; F256-IgE Walnut <0.10; F338-IgE Scallop <0.10; F345-IgE Macadmia Nut <0.10
[2024-09-13 11:47] LABS: Class Brazil Nut 0; Class Cashew 0; Class Salmon 0; F018-IgE Brazil Nut <0.10; F041 IgE Salmon <0.10
== END 2024-08-30 07:21 | disposition home or self-care (01) ==
LOC: HO.LAB 07:20
PROVIDERS: PCP Physician Assistant; Visit Provider Physician Assistant
DX: R05.9 Cough, unspecified (principal); R13.10 Dysphagia, unspecified; I10 Essential (primary) hypertension; E78.9 Disorder of lipoprotein metabolism, unspecified; N40.0 Benign prostatic hyperplasia without lower urinary tract symptoms; Z12.5 Encounter for screening for malignant neoplasm of prostate; Z91.09 Other allergy status, other than to drugs and biological substances
CPT/HCPCS: 36415; 80053; 80061; 82043; 82570; 82785; 84153; 85027; 86003

== ENCOUNTER 2024-09-16 07:29 | Outpatient (REF) | payer OTHER, SELFPAY ==
--- NOTE | ~2024-09-16 | XR_ITS ---
CLINICAL HISTORY: M77.8 - Other enthesopathies, not elsewhere classified Five views of the right shoulder. COMPARISON: None FINDINGS: Proximal right humerus, the right scapula, and the right clavicle appear intact. Humeral head is appropriately seated in the glenoid. [id number] hypertrophy of the right acromioclavicular joint prominent enthesophyte. Visualized portions of the right lung are clear. IMPRESSION: 1. No radiographic evidence of acute injury to the right shoulder. 2. [id number] acromioclavicular joint degenerative changes. This document has been electronically signed by: Mark Alexandre MD on 09/16/2024 15:49:16
--- OUTSIDE RECORDS SUMMARY | 2024-09-16 07:32 | XMS_ITS | Clinical Summary ---
Author Organization [facility] Address [address] [place] [phone] Phone Care Team Providers Care Cable Tool Driller Name Role Phone Pcp, Unknown Primary Care Provider Unavailabl e Allergies No known active allergies Medications Medication Sig Dispensed Refills Start Date End Date Status lisinopril (PRINIVIL,ZESTRIL) 20 MG tabletIndications:Esse ntial hypertension Take 1 tablet (20 mg total) by mouth daily. 90 tablet 10/21/2019 Active Active Problems Problem Noted Date Diagnosed Date Annual physical exam 01/25/2019 Assessment & Plan (01/25/2019 7:42 PM EDT): Pt UTD with tdap and is advised to have A flu shot this fall. He is due for fasting labs and will have them drawn. Pt counseled on diet, exercise and weight loss. Essential hypertension 01/25/2019 Assessment & Plan (01/25/2019 7:43 PM EDT): Pt doing well on lisinopril home values 110-130/70-80. Pt counseled on diet, exercise, weight loss and low sodium diet and will have fasting labs Drawn. Immunizations Name Administration Dates Next Due DTP 1973 Hepatitis B Adult 03/21/2004,11/22/2003,10/23/19 04 Influenza trivalent preserva tive free intradermal 03/30/2015 MMR 04/20/2009, 9,1973,1973 PPD Test 01/31/2011 Tdap 08/31/2016,03/17/2009 Varicella 04/20/2009,03/17/2009 Social History Tobacco Use Types Packs/Day Years Used Date Smoking Tobacco: Former Cigarettes 1 984 - 1998 Smokeless Tobacco: Never Alcohol Use Standard Drinks/Week Comments Never 0 (1 standard drink = 0.6 oz pur e alcohol) rare 1-2 x annually Education Answer Date Recorded Are you interested in more education? Not on glayds e 10/07/2022 Are you concerned about learning? Not on file 10/07/2022 No 10/07/2022 No 10/07/2022 Digital Access Answer Date Recorded No 11/07/2022 No 11/07/2022 No 11/07/2022 Reliable internet access at home? Not on file 11/07/2022 Device with a working camera? Not on file Sex and Gender Information Value Date Recorded Sex Assigned at Not on file Gender Identity Not on file Sexual Orientation Not on file Last Filed Vital Signs Vital Sign Reading Time Taken Comments Blood Pressure 112/76 01/25/2019 4:21 PM EDT Pulse 80 01/25/2019 4:21 PM EDT Temperature 36.8 ??C (98.2 ??F) 01/25/2019 4:21 PM ED T Respiratory Rate - - Oxygen Saturation 95% 01/25/2019 4:21 PM EDT Inhaled Oxygen Concentration - - Weight 93.9 kg (207 lb) 01/25/2019 4:21 PM EDT Height 168.9 cm (5' 6.5 ) 01/25/2019 4:21 PM EDT Body Mass Index 32.91 01/25/2019 4:21 PM EDT Plan of Treatment Health Maintenance Due Date Last Done Comments BLOOD PRESSURE 1973 SMOKING Hx and SMOKELESS TOBACCO SCREENING 1986 HEPATITIS B SCREENING 1991 HEPATITIS C SCREENING 1991 HIV ONE-TIME SCREENING (18-6 5 YEARS) 1991 COLOGUARD 2018 COLONOSCOPY 2018 COLORECTAL CANCER SCREENING 2018 FIT TEST 2018 FOBT 2018 SIGMOIDOSCOPY 2018 VIRTUAL COLONOSCOPY 2018 DEPRESSION SCREENING 01/26/2020 01/25/2019 CREATININE LEVEL 11/11/2020 11/12/2019 POTASSIUM LEVEL 11/11/2020 11/12/2019 PNEUMOCOCCAL VACCINES (50+ years) (1 of 1 - PCV) 2023 ZOSTER VACCINES (1 of 2) 2023 INFLUENZA VACCINE (#1) 2024 0, 03/30/2015 COVID-19 VACCINE (3 - 2023-2 5 season) 2024 06/25/2020, 06/04/2020 LIPID PANEL 11/11/2024 11/12/2019 Adult Td,Tdap Booster 03/27/2029 03/27/2019 , 08/31/2016, 03/17/2009 HEPATITIS B VACCINES Completed 03/21/2004, 11/22/2003, 10/23/2003 HEPATITIS A VACCINES Aged Out No long er eligible based on patient's age to complete this topic HIB VACCINES Aged Out No longer eligi ble based on patient's age to complete this topic MENINGOCOCCAL VACCINES (ACWY) Aged Out No longer eligible based on patient's age to complete this topic Medical Devices Not on file Procedures Procedure Name Priority Date/Time Associated Diagnosis Comments LIPID PANEL Routine 11/12/2019 7:49 AM EDT Essential hypertension COMPREHENSIVE METABOLIC PANEL Routine 11/12/2019 7:49 AM EDT Essential hypertension from Last 3 Months or Most Recently Relevant to Health Maintenance Results * (ABNORMAL) Comprehensive metabolic panel (11/12/2019 7:49 AM EDT) SODIUM 139 133 - 146 mmol/L [facility] POTASSIUM 4.6 3.3 - 5.1 mmol/L [facility] CHLORIDE 103 96 - 108 mmol/L [facility] CO2 28 21 - 35 mmol/L [facility] BUN 14 6 - 19 mg/dL [facility] CREATININE 0.90 0.5 - 1.5 mg/dL [facility] GLUCOSE 103(H) 70 - 99 mg/dL [facility] ALBUMIN 4.2 3.9 - 4.8 g/dL [facility] TOTAL PROTEIN 6.9 6.5 - 8.0 g/dL [facility] CALCIUM 9.4 8.4 - 10.3 mg/dL [facility] ALKALINE PHOSPHATASE 91 39 - 117 U/L [facility] TOTAL BILIRUBIN 0.6 0.0 - 1.2 mg/dL [facility] AST 33 0 - 37 U/L [facility] ALT 63(H) 0 - 40 U/L [facility] GLOBULIN 2.7 1 - 4.8 g/dL [facility] EGFR 102 >59 mL/min/1.7 3m2 [facility] Comment:If patient is black, multiply result by 1.159. Estimated glomerular filtration rate calculated using the CKD-EPI equation. ANION GAP 13 10 - 20 mmol/L [facility] Blood 11/12/2019 7:49 AM EDT 11/12/2019 7:51 AM EDT Tom Agrawal DO LAB BLOOD ORDERABLES Performing Organization Address [facility] Co de Phone Number [address] [phone] * (ABNORMAL) Lipid panel (11/12/2019 7:49 AM EDT) HDL 49 mg/dL [facility] Comment: ? Interpretation <40 mg/dL: Low HDL cholesterol (major risk factor for CHD) Greater than or equal to 60 mg/dL: High HDL cholesterol ( negative risk factor for CHD) HDL - cholesterol is affected by a number of factors, e.g. smoking, excerise, hormones, sex and age. CHOLESTEROL 203 0 - 240 mg/dL [facility] TRIGLYCERIDES 95 30 - 160 mg/dL [facility] LDL 135(H) 50 - 129 mg/dL [facility] Comment: LDL levels in terms of risk for coronary heart disease: <100 mg/dL: Optimal 100-129 mg/dL: Near or above optimal 130-159 mg/dL: Borderline high 160-189 mg/dL: High >190 mg/dL: Very High CARDIAC RISK RATIO 4.1 3.4 - 5.0 [facility] Blood 11/12/2019 7:49 AM EDT 11/12/2019 7:51 AM EDT Tom Agrawal DO LAB BLOOD ORDERABLES Performing Organization Address City/[facility]/ZIP Co de Phone Number [address] [phone] from Last 3 Months or Most Recently Relevant to Health Maintenance Care Teams Cable Tool Driller Relationship Specialty Start Date End Date Pcp, Unknown PCP - General 05/17/22 Additional Source Comments The information contained in this document represents components of the legal health record. It is not the complete legal health record.[facility]
== END 2024-09-16 07:30 | disposition home or self-care (01) ==
LOC: HO.XRAY 07:29
PROVIDERS: PCP Physician Assistant; Visit Provider Physician Assistant
DX: M77.8 Other enthesopathies, not elsewhere classified (principal)
CPT/HCPCS: 73030

== ENCOUNTER → 2024-09-16 07:41 | Outpatient (BNV) | payer OTHER, SELFPAY | PROVIDERS: PCP Physician Assistant; Visit Provider Radiology Diagnostic Radiology | DX: M19.011 Primary osteoarthritis, right shoulder (principal) | CPT/HCPCS: 73030 ==

== ENCOUNTER 2025-02-19 07:48 | Outpatient (AMB) | payer OTHER, SELFPAY ==
--- OUTSIDE RECORDS SUMMARY | 2025-02-19 07:50 | XMS_ITS | Clinical Summary ---
Author Organization [facility] Address [address] [place] [phone] Phone Care Team Providers Care Photograph Tinter Name Role Phone Pcp, Unknown Primary Care Provider Unavailabl e Allergies No known active allergies Medications lisinopril (PRINIVIL,ZESTRIL ) 20 MG tabletIndications :Essential hypertension Take 1 tablet (20 mg total) [...] and will have fasting labs Drawn. Immunizations Immunization Administration Dates Next Due DTP 1973 Hepatitis B Adult 03/21/2004,11/22/2003,10/23/19 04 Influenza trivalent preserva tive free intradermal 03/30/2015 MMR 04/20/2009,,1973,1973 PPD Test 01/31/2011 Tdap 08/31/2016,03/17/2009 Varicella 04/20/2009,03/17/2009 Social History Tobacco Use Types Packs/Day Years Used Date Smoking Tobacco: Former Cigarettes 1 4 - 1998 Smokeless Tobacco: Never Alcohol Use Standard Drinks/Week Comments Never 0 (1 standard drink = 0.6 oz pur e alcohol) rare 1-2 x annually Education Answer Date Recorded Are you interested in more education? Not on gladys e 10/07/2022 Are you concerned about learning? Not on file 10/07/2022 No 10/07/2022 No 10/07/2022 Digital Access Answer Date Recorded No 11/07/2022 No 11/07/2022 Reliable internet access at home? Not on file 11/07/2022 Device with a working camera? 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 Not on file Not on file Last Filed Vital Signs Vital Sign Reading Time Taken Comments Blood Pressure 112/76 01/25/2019 4:21 PM EDT Pulse 80 01/25/2019 4:21 PM EDT Temperature 36.8 C (98.2 F) 01/25/2019 4:21 PM EDT Respiratory Rate - - Oxygen Saturation 95% [...] Hx and SMOKELESS TOBACCO SCREENING 1986 HEPATITIS C SCREENING 1991 HIV ONE-TIME SCREENING (18-6 5 YEARS) 1991 COLOGUARD 2018 COLONOSCOPY 2018 COLORECTAL CANCER SCREENING 2018 FIT TEST 2018 FOBT 2018 SIGMOIDOSCOPY 2018 VIRTUAL COLONOSCOPY 2018 DEPRESSION SCREENING 01/26/2020 01/25/2019 CREATININE LEVEL 11/11/2020 11/12/2019 POTASSIUM LEVEL 11/11/2020 11/12/2019 PNEUMOCOCCAL VACCINES (50+ years) (1 of 1 - PCV) 2023 ZOSTER VACCINES (1 of 2) 2023 LIPID PANEL 11/11/2024 11/12/2019 INFLUENZA VACCINE (#1) 2025 0, 03/30/2015 COVID-19 VACCINE (3 - 2024-2 6 season) 2025 06/25/2020, 06/04/2020 Adult Td,Tdap Booster 03/27/2029 03/27/2019 , 08/31/2016, 03/17/2009 HEPATITIS A VACCINES Aged Out No long er eligible based on patient's age to complete this topic HIB VACCINES Aged Out No longer eligi ble based on patient's age to complete this topic MENINGOCOCCAL VACCINES (ACWY) Aged Out No longer eligible based on patient's age to complete this topic MENINGOCOCCAL VACCINES (B) Aged Out N o longer eligible based on patient's age to [...] EDT) SODIUM 139 133 - 146 mmol/L [facility] POTASSIUM 4.6 3.3 - 5.1 mmol/L [facility] CHLORIDE 103 96 - 108 mmol/L [facility] CO2 28 21 - 35 mmol/L [facility] BUN 14 6 - 19 mg/dL [facility] CREATININE 0.90 0.5 - 1.5 mg/dL [facility] GLUCOSE 103(H) 70 - 99 mg/dL [facility] ALBUMIN 4.2 3.9 - 4.8 g/dL [facility] TOTAL PROTEIN 6.9 6.5 - 8.0 g/dL [facility] CALCIUM 9.4 8.4 - 10.3 mg/dL [facility] ALKALINE PHOSPHATASE 91 39 - 117 U/L [facility] TOTAL BILIRUBIN 0.6 0.0 - 1.2 mg/dL [facility] AST 33 0 - 37 U/L [facility] ALT 63(H) 0 - 40 U/L [facility] GLOBULIN 2.7 1 - 4.8 g/dL [facility] EGFR 102 >59 mL/min/1.7 3m2 [facility] Comment:If patient is black, multiply result by 1.159. Estimated glomerular filtration rate calculated using the CKD-EPI equation. ANION GAP 13 10 - 20 mmol/L [facility] Blood 11/12/2019 7:49 AM EDT 11/12/2019 7:51 AM EDT [employer] LAB BLOOD ORDERABLES Final Resul t Performing Organization Address City/[facility] Co de Phone Number [address] [phone] * (ABNORMAL) Lipid panel (11/12/2019 7:49 AM EDT) HDL 49 mg/dL [facility] Comment: Interpretation <40 mg/dL: Low HDL cholesterol (major risk factor for CHD) Greater than or equal to 60 mg/dL: High HDL cholesterol ( negative risk factor for CHD) HDL - cholesterol is affected by a number of factors, e.g. smoking, excerise, hormones, sex and age. CHOLESTEROL 203 0 - 240 mg/dL [facility] TRIGLYCERIDES 95 30 - 160 mg/dL [facility] LDL 135(H) 50 - 129 mg/dL [facility] Comment: LDL levels in terms of risk for coronary heart disease: <100 mg/dL: Optimal 100-129 mg/dL: Near or above optimal 130-159 mg/dL: Borderline high 160-189 mg/dL: High >190 mg/dL: Very High CARDIAC RISK RATIO 4.1 3.4 - 5.0 C [facility] Blood 11/12/2019 7:49 AM EDT 11/12/2019 7:51 AM EDT Scout DO LAB BLOOD ORDERABLES Final Resul t Performing Organization Address City/[facility]/ZIP Co de Phone Number [address] [phone] from Last 3 Months or Most Recently Relevant to Health Maintenance Insurance [facility] Care Teams Photograph Tinter Relationship Specialty Start Date End Date Pcp, Unknown PCP - General 05/17/22 Additional Source Comments The information contained in this document represents components of the legal health record. It is not the complete legal health record.[facility]
--- NOTE | 2025-02-19 08:03 | MHC.PC.OV ---
Vital Signs 02/19/25 08:04 Height 5 ft 5.6 in Weight 200 lb BMI 32.7 BP 130/68 Blood Pressure Location Lt brachial Position Sitting Pulse 65 Pulse Source Pulse Oximeter Temp 97.3 F Temp Source Temporal Artery Scan Pulse Oximetry (%) 99 Oxygen Delivery Method Room Air Intake Visit Reasons: f/u HTN Intake Note: Patient is here to follow up on HTN. Publications Production Supervisor Required: No Political Organizer: Not Required per policy Accompanied by: Self / Same As Patient Allergies atomoxetine (From Strattera) Adverse Reaction (Intermediate, Verified 02/19/25 08:11) Increased anxiety Medication List - Last Reconciled 02/19/25 by Panfilo Jeffers PA-C amlodipine 5 mg PO DAILY 90 days dextroamphetamine-amphetamine 10 mg ER (Adderall XR) 10 mg PO DAILY PRN 28 days lisinopril 40 mg PO DAILY 90 days omeprazole 20 mg PO DAILY Tobacco use date assessed: 02/19/25 Dental Screening Dental Screen Date: 08/19/24 HPI f/u HTN HPI Details Patient is a 49-year-old male here today for a follow-up visit. Patient has a past medical history significant for hypertension, GERD, BPH, history of borderline cholesterol >. 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 ADD> he reports he continues to trouble staying focused on his school work. He had tried Strattera though felt some anxiety with his medication. He is in a [employer] program. He does use Adderall for his attention focus on a as needed basis to help study for exams which helps tremendously. .. Hypertension: Patient's blood pressure acceptable today in office. Continues lisinopril amlodipine with good effect on split pressure. [facility] Medical History Abnormal CT of the abdomen HTN (hypertension) Surgical History History of esophagogastroduodenoscopy (EGD) Hx of colonoscopy History of cholecystectomy (~2007) Family History Mother Uterus cancer Father Stomach cancer Social History Household Members: Family Household Members Other:: 4 kids Housing: House Alcohol intake: never Patient Tobacco Use Status: Former Tobacco user Tobacco use type: Cigarette e-Cigarette/Vaping Use: Never Used Second Hand Smoke Exposure: Yes service: No Current occupational status: employed Current occupation: RN- [employer] Cognitive needs: No Hearing needs: No Vision needs: Yes Questionnaire Thrive Questionnaire Date Thrive assessed: 08/19/24 I am a: Patient What is your living situation today?: I have a steady place to live Within the past 12 months, did the food you bought not last and you didn't have the money to get more?: Often true Within the past 12 months, did you worry whether your food would run out before you got money to buy more?: Never true Do you have trouble paying for medicines?: No Do you have trouble getting transportation to medical appointments?: No Do you have trouble paying your heating and electricity bill?: No Do you have trouble taking care of your child, family member or friend?: No Do you have trouble with day-to-day activities such as bathing, preparing meals, shopping, managing finances, etc.?: No Are you currently unemployed and looking for a job?: No Are you interested in more education?: Yes Please select the resources that you would like help with: Education Currently or been in a relationship where the following occur: I choose not to answer THRIVE Score: 1 MONICA-7 AMB Questionnaire MONICA-7 Date MONICA - 7 assessed: 08/19/24 Source: Developed by Drs. Jed Askew, Jeri Silver, Bay Dan and colleagues, with an educational helio from [email or web address]. Review of Systems Const Denies headache(s) Eyes Denies loss of vision ENT Denies vertigo, Denies dizziness, Denies headache(s) and Denies sore throat Card Denies chest pain, Denies leg edema and Denies lightheadedness Resp Denies cough, Denies hemoptysis and Denies wheezing GI Denies abdominal pain, Denies melena, Denies constipation, Denies diarrhea and Denies vomiting Denies dysuria, Denies urinary frequency and Denies urinary urgency Musc Denies arthralgias, Denies joint swelling, Denies numbness and Denies tingling Neuro Denies Abnormal speech present, Denies behavioral changes, Denies vertigo, Denies dizziness, Denies headache(s), Denies loss of vision, Denies memory loss, Denies numbness and Denies tingling Psych Denies anxiety, Denies behavioral changes, Denies depression, Denies memory loss and Denies panic attacks Bryant/Lymph Denies easy bleeding and Denies easy bruising Aller/Immun Denies wheezing Physical exam (Primary Care) Vital Signs: Last Vital Signs Temp 97.3 F 02/19/25 08:04 Pulse 65 02/19/25 08:04 BP 130/68 02/19/25 08:04 Pulse Ox 99 02/19/25 08:04 Oxygen Delivery Method Room Air 02/19/25 08:04 BMI result Body Mass Index 32.7 BMI Assessment/Plan discussion: High BMI High, discussed plan: lifestyle, weight reduction, dietary and physical activity Tobacco/Smoking Status: Tobacco use Status Tobacco use date assessed 02/19/25 02/19/25 08:06 Patient Tobacco Use Status Former Tobacco user 02/19/25 08:06 Tobacco use type Cigarette 02/19/25 08:06 e-Cigarette/Vaping Use Never Used 02/19/25 08:06 Thrive Assessment: Date of Thrive Assessment Date Thrive assessed 08/19/24 02/19/25 08:06 Currently or been in a relationship where the following occur: I choose not to answer Const General: healthy appearing, no acute distress, alert and awake Nutritional Appearance: well nourished Orientation/consciousness: oriented to person, oriented to place and oriented to time HENMT Ears: TM's normal bilaterally General nose exam: Normal nasal mucous membranes and turbinates present Eyes Conjunctivae: conjunctivae normal Sclerae: sclerae normal Pupils: Equal, round and reactive pupils present Neck Neck: Yes no lymphadenopathy and Yes no JVD Thyroid: Thyroid normal Carotids: no bruits Resp Effort & Inspection: normal respiratory effort and not tachypneic Auscultation: no crackles, no rales, no rhonchi and no wheezes Cardio Rate: regular rate Rhythm: regular rhythm Heart sounds: no murmurs and normal S1 and S2 GI Palpation (GI): Soft to palpation, nontender, no hepatomegaly and no splenomegaly Auscultation: normal bowel sounds Skin General skin exam: no rashes or lesions noted and dry skin Neuro General: oriented to person, oriented to place and oriented to time Cranial nerves: Yes Equal, round and reactive pupils present Speech: No Abnormal speech present Gait exam (Neuro): Normal gait present Motor exam (neuro): no tremor noted Extrem Right upper extremity: full ROM Left upper extremity: full ROM Right lower extremity: full ROM; no edema Left lower extremity: full ROM; no edema Psych Mental Status: mental status grossly normal Speech and movement: Normal speech and movement present Affect: normal affect Attitude: cooperative Thought process: Normal thought process present Coding Level of Care Code Est Pt Level 4 (86612) Diagnoses Primary hypertension I10 Hypertension type: primary hypertension Right shoulder tendinitis M77.8 Borderline high cholesterol E78.9 Class 1 obesity E66.811 Assessment & Plan Assessment & Plan (1) HTN (hypertension): Code(s): I10 - Essential (primary) hypertension Category: Medical Qualifiers: Hypertension type: primary hypertension Qualified Code(s): I10 - Essential (primary) hypertension Plan: Patient's blood pressure acceptable today in office. Will continue his current dose of antihypertensive medication with goal blood pressure remain below 140/90 (2) Right shoulder tendinitis: Code(s): M77.8 - Other enthesopathies, not elsewhere classified Category: Medical Plan: Recent x-ray of the right shoulder showing moderate AC arthritis. He reports he has been doing his own exercises which has increase his range of motion. Advised on conservative treatment for possible right shoulder tendinitis. (3) Borderline high cholesterol: Code(s): E78.9 - Disorder of lipoprotein metabolism, unspecified Category: Medical Plan: Patient does have a history of borderline high cholesterol. He will continue working on lifestyle and dietary modifications. Goal LDL to be below 130 (4) Class 1 obesity: Code(s): E66.811 - Obesity, class 1 Category: Medical Plan: Has lost weight since last office visit. Patient does understand his BMI is over 30 will work on being more physically active and adapting to better eating habits to reduce his weight Orders: Orders Lipid Panel Today E78.9 - Disorder of lipoprotein metabolism, unspecified Microalbumin, Random (w Creat) Today I10 - Essential (primary) hypertension Prostate Specific Antigen Scr Today N40.0 - Benign prostatic hyperplasia without lower urinary tract symptoms, Z12.5 - Encounter for screening for malignant neoplasm of prostate Comprehensive [place]. Panel Fast Today I10 - Essential (primary) hypertension Complete Blood Count no Diff Today I10 - Essential (primary) hypertension
[2025-02-19 08:04] VITALS: BP 130/68; PULSE 65; TEMP 36.3; O2SAT 99; BMI 32.7
== END 2025-02-19 08:18 | disposition home or self-care (01) ==
LOC: HO.HMCH 07:48
PROVIDERS: PCP Physician Assistant; Visit Provider Physician Assistant
DX: I10 Essential (primary) hypertension (principal); M77.8 Other enthesopathies, not elsewhere classified; E66.811 Obesity, class 1; Z68.32 Body mass index [BMI] 32.0-32.9, adult; E78.9 Disorder of lipoprotein metabolism, unspecified

== ENCOUNTER 2025-04-17 06:48 | Outpatient (REF) | payer OTHER, SELFPAY ==
--- OUTSIDE RECORDS SUMMARY | 2025-04-17 06:50 | XMS_ITS | Clinical Summary ---
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 [...] Td,Tdap Booster 03/27/2029 03/27/2019 , 08/31/2016, 03/17/2009 RSV VACCINE (1 - 1-dose 75+ series) 2048 HEPATITIS A VACCINES Aged Out No long [...] AM EDT Essential hypertension COMPREHENSIVE METABOLIC PANEL (CMP) Routine 11/12/2019 7:49 AM EDT Essential hypertension from Last 3 Months or Most Recently Relevant to Health Maintenance Results * (ABNORMAL) Comprehensive metabolic panel (11/12/2019 7:49 AM EDT) SODIUM 139 133 - 146 mmol/L [facility] POTASSIUM 4.6 3.3 - 5.1 mmol/L [facility] CHLORIDE 103 96 - 108 mmol/L [facility] CO2 28 21 - 35 mmol/L [facility] BUN 14 6 - 19 mg/dL [facility] CREATININE 0.90 0.5 - 1.5 mg/dL [facility] GLUCOSE 103(H) 70 - 99 mg/dL [facility] ALBUMIN 4.2 3.9 - 4.8 g/dL [facility] TOTAL PROTEIN 6.9 6.5 - 8.0 g/dL [facility] CALCIUM 9.4 8.4 - 10.3 mg/dL [facility] ALKALINE PHOSPHATASE 91 39 - 117 U/L [facility] TOTAL BILIRUBIN 0.6 0.0 - 1.2 mg/dL [facility] AST 33 0 - 37 U/L [facility] ALT 63(H) 0 - 40 U/L [facility] GLOBULIN 2.7 1 - 4.8 g/dL [facility] EGFR 102 >59 mL/min/1.7 3m2 [facility] Comment:If patient is black, multiply result by 1.159. Estimated glomerular filtration rate calculated using the CKD-EPI equation. ANION GAP 13 10 - 20 mmol/L [facility] Blood 11/12/2019 7:49 AM EDT 11/12/2019 7:51 AM EDT [employer] LAB BLOOD BKR ORDERABLES Final R [employer] Performing Organization Address City/[facility] Co de Phone Number [address] [phone] * (ABNORMAL) Lipid panel (11/12/2019 7:49 AM EDT) HDL 49 mg/dL [facility] Comment: Interpretation <40 mg/dL: Low HDL cholesterol (major risk factor for CHD) Greater than or equal to 60 mg/dL: High HDL cholesterol ( negative risk factor for CHD) HDL - cholesterol is affected by a number of factors, e.g. smoking, excerise, hormones, sex and age. CHOLESTEROL 203 0 - 240 mg/dL [facility] TRIGLYCERIDES 95 30 - 160 mg/dL [facility] LDL 135(H) 50 - 129 mg/dL [facility] Comment: LDL levels in terms of risk for coronary heart disease: <100 mg/dL: Optimal 100-129 mg/dL: Near or above optimal 130-159 mg/dL: Borderline high 160-189 mg/dL: High >190 mg/dL: Very High CARDIAC RISK RATIO 4.1 3.4 - 5.0 C [facility] Blood 11/12/2019 7:49 AM EDT 11/12/2019 7:51 AM EDT [facility] LAB BLOOD BKR ORDERABLES Final R [employer] Performing Organization Address City/[facility]/ZIP Co de Phone Number [address] [address] from Last 3 Months or Most Recently Relevant to Health Maintenance Insurance [facility] Care Teams Wastewater Plant Operator Relationship Specialty Start Date End Date Pcp, Unknown PCP - General 05/17/22 Additional Source Comments The information contained in this document represents components of the legal health record. It is not the complete legal health record.[facility]
[2025-04-17 07:19] LABS: Hematocrit 48.3 % (42.0-52.0); Hemoglobin 16.2 g/dl (14.0-18.0); Mean Corpuscular HGB Conc 33.5 g/dl (31.0-36.0); Mean Corpuscular Hemoglobin 31.5 pg (27.0-33.0); Mean Corpuscular Volume 94.0 fL (80.0-98.0); NRBC Abs Auto 0.000 X10*3/uL (0.0-0.012); NRBC Pct Auto 0.0 /100WBC (0.0-0.2); Platelet Count 231 X10*3/uL (160-400); Red Blood Count 5.14 X10*6/uL (4.60-5.80); White Blood Count 8.5 X10*3/uL (4.8-10.8)
[2025-04-17 07:48] LABS: Alanine Aminotransferase 44 U/L (0-40); Albumin Level 4.5 g/dL (3.5-5.0); Alkaline Phosphatase 96 U/L (39-117); Anion Gap 10 (12-20); Aspartate Amino Transferase 25 U/L (5-37); Blood Urea Nitrogen 13 mg/dL (9-16); Calcium 9.0 mg/dL (8.4-10.2); Carbon Dioxide 29 mmol/L (22-29); Chloride 107 mmol/L (96-108); Cholesterol 215 mg/dL (<200); Estimated Glomerular Filt Rate > 60; HDL Cholesterol 50 mg/dL (>40); Potassium 3.4 mmol/L (3.3-5.1); Sodium 143 mmol/L (135-145); Total Protein 7.2 g/dL (6.5-8.0); Triglycerides 83 mg/dL (<150)
[2025-04-17 08:01] LABS: Microalbum/Creatinine Ratio Ur 9.0 ug/mg cr (<30)
== END 2025-04-17 06:49 | disposition home or self-care (01) ==
LOC: HO.LAB 06:48
PROVIDERS: PCP Physician Assistant; Visit Provider Physician Assistant
DX: Z12.5 Encounter for screening for malignant neoplasm of prostate (principal); I10 Essential (primary) hypertension; N40.0 Benign prostatic hyperplasia without lower urinary tract symptoms; E78.9 Disorder of lipoprotein metabolism, unspecified
CPT/HCPCS: 36415; 80053; 80061; 82043; 82570; 84153; 85027